=== PATIENT | female | born 1985 ===

== ENCOUNTER 2023-09-30 10:01 | Emergency (ER) | payer OTHER, SELFPAY ==
--- NOTE | ~2023-09-30 | XR_ITS ---
EXAMINATION: XR CHEST CLINICAL INFORMATION: Cough. COMPARISON: None available. TECHNIQUE: Frontal view of the chest was obtained. FINDINGS: Normal appearance of the cardiomediastinal structures. No effusions or pneumothoraces. Normal pattern of pulmonary vasculature. No focal pulmonary consolidation. No skeletal abnormalities identified. XR/XR chest 1V IMPRESSION: Normal chest. Lungs clear.
[2023-09-30 10:03] VITALS: BP 132/69; PULSE 100; RESP 18; TEMP 36.1; O2SAT 99; BMI 38.1
[2023-09-30 11:53] LABS: Influenza A PCR POSITIVE (Negative); Influenza B PCR NEGATIVE (Negative); Resp Syncy Virus RNA Qual PCR NEGATIVE (Negative); SARS COV2 PCR INHOUSE NEGATIVE (Negative)
--- NOTE | 2023-09-30 12:31 | ECG_ITS ---
Test Reason : CP Blood Pressure : / mmHG Vent. Rate : 075 BPM Atrial Rate : 075 BPM P-R Int : 134 ms QRS Dur : 088 ms QT Int : 408 ms P-R-T Axes : 030 044 018 degrees QTc Int : 455 ms Normal sinus rhythm with sinus arrhythmia Nonspecific ST and T wave abnormality Borderline ECG No previous ECGs available Referred By: Renita Schneider Electronically Signed By:TRUNG MARIE
--- NOTE | 2023-09-30 12:31 | ED.URI ---
HPI - URI/Sore Throat General Chief Complaint: Upper Respiratory Symptoms Stated Complaint: diff breathing Time Seen by Provider: 09/30/23 11:13 Source: patient and family Mode of arrival: ambulatory Limitations: no limitations History of Present Illness HPI Narrative: 38 year old female with pmhx significant for asthma presents to the ED today for evaluation of shortness of breath, cough, and nasal congestion x yesterday. Cough is nonproductive of sputum. Endorses history of asthma. Has an albuterol inhaler at home that is 7 years old. Has been using it without relief. Denies fever, chills, abd pain, n/v, flank pain, LE pain/ swelling. Denies recent travel or long car rides. Denies known sick contacts. Related Data Previous Rx's Medication Instructions Recorded albuterol sulfate 90 mcg/actuation 2 inh inhalation Q20M #6.7 grams 09/30/23 aerosol inhaler prednisone 20 mg tablet 20 mg PO DAILY 5 days #5 tabs 09/30/23 Allergies Allergy/AdvReac Type Severity Reaction Status Date / Time Latex, Natural Rubber Allergy Intermediate Hives Verified 09/30/23 10:03 Review of Systems Review of Systems: Constitutional: No fever, chills, fatigue, night sweats, weight changes ENT/Mouth: No ear pain, hearing loss, nasal congestion, sinus pain, rhinorrhea, +sore throat, No odynophagia, No dysphagia Eyes: No eye pain, swelling, redness, vision changes, discharge Cardio: No chest pain, palpitations, ANN, orthopnea, peripheral edema Pulm: +SOB, +cough, No sputum, wheezing, dyspnea, hemoptysis GI: No nausea, vomiting, hematemesis, abdominal pain, diarrhea, constipation, hematochezia, melena : No irregular bleeding, dysuria, frequency, urgency, hesitancy, hematuria, flank pain MSK: No back pain, neck pain, joint pain, myalgias Skin: No lesions, rashes Neuro: No weakness, numbness, paresthesias, LOC, dizziness, headache All other systems reviewed and are negative. [facility] Past Medical History Attestation statement: The following information was validated with the patient. Source: old records reviewed and nursing notes reviewed Social History Social History Advance Directives: No Physical Exam Vital Signs: Vital Signs: Last Vital Signs Temp 97.0 F 09/30/23 10:03 Pulse 100 09/30/23 10:03 Resp 18 09/30/23 10:03 BP 132/69 09/30/23 10:03 Pulse Ox 99 09/30/23 10:03 O2 Del Method Room Air 09/30/23 10:03 BMI result Body Mass Index 38.1 Vital signs stable, not hypoxic Const: General: cooperative, healthy appearing, comfortable, no acute distress, alert and awake Orientation/consciousness: patient oriented x3 Limitations: no limitations HEENT: Other: + posterior oropharynx without erythema or edema, no tonsillar exudates, uvula midline, talking in complete sentences and controlling secretions. Ears: hearing grossly normal bilaterally, external ears normal, TM's normal bilaterally, EAC's normal, mastoids normal and no periauricular adenopathy General nose exam: Normal external nose present and No nasal discharge present Face and sinus: Yes normal facial exam and Yes sinuses nontender Eyes: General: appearance normal, both eyes and all related structures Pupils: Equal, round and reactive pupils present Neck: Neck: Yes normal visual inspection and Yes no lymphadenopathy Resp: Effort & Inspection: normal respiratory effort, able to speak in complete sentences, Actively coughing, no respiratory distress, no tripod positioning and no use of accessory muscles Auscultation: clear to auscultation bilaterally and no wheezes Cardio: Jugular venous distension: no JVD Rate: regular rate Rhythm: regular rhythm GI: Inspection: Yes normal to inspection Palpation (GI): Soft to palpation and nontender Skin: General skin exam: no rashes or lesions noted Neuro: General: patient oriented x3, gait normal and moves all extremities Cranial nerves: Yes Equal, round and reactive pupils present Extrem: General: Yes normal to inspection Course Course Course Narrative: 1249-- patient is positive for influenza A. She tested negative for RSV and COVID. Chest x-ray is unremarkable. EKG unremarkable. Informed patient of her serology and imaging results. Her lungs are CTA bilaterally, no signs of acute respiratory distress, vital signs are stable. I offered patient a dose of Solu-Medrol along with RT breathing treatment in the ED however she declines both of these. States that she would like to go home. Patient has remained stable throughout ED visit today. Discussed worrisome signs and symptoms of when to return to the ED. All questions answered at this time. Patient is agreeable with disposition and stable for discharge. Medications Administered Discontinued Medications Generic Name Dose Route Start Last Admin Trade Name Pam PRN Reason Stop Dose Admin Methylprednisolone Sodium Succinate 60 mg 09/30/23 12:32 09/30/23 12:55 Methylprednisolone Sod Succ 125 Mg/2 Ml Vial IM 09/30/23 12:33 60 mg ONCE ONE Administration Medical Decision Making Medical Decision Making [facility] Narrative: 38 year old female with pmhx significant for asthma presents to the ED today for evaluation of shortness of breath, cough, and nasal congestion x yesterday. Vital signs stable. She is afebrile, not hypoxic. She is nontoxic appearing and in no acute distress. Lungs CTA bilaterally. No wheezing. Actively coughing on exam. RRR. Posterior oropharynx WNL. Bilateral EACs and TMs WNL. Perc score 0. Low suspicion for PE. Clinical concern for viral syndrome, pneumonia, strep throat. Unlikely pneumothorax, ACS, arrhythmia, pleural effusion, mono, [employer], retropharyngeal abscess, epiglottis, acute respiratory distress. Plan for serology, chest x-ray, EKG and re-evaluation. Differential Diagnosis Differential Diagnoses: The differential diagnosis associated with the presentation includes as above. Admission/Observation Not indicated Lab Data [facility] Lab Attestation statement: I reviewed the patient's lab results. as above Labs: Lab Results 09/30/23 Range/Units 10:13 Influenza Type A (PCR) POSITIVE A (Negative) Influenza Type B (PCR) NEGATIVE (Negative) RSV RNA Qual (PCR) NEGATIVE (Negative) SARS-CoV-2 RNA (RT-PCR) NEGATIVE (Negative) Independent Interpretation I performed an independent interpretation of an: EKG and Plain X-Ray Interpretation: EKG showing normal sinus rhythm with sinus arrhythmia, rate of 75 beats per minute, QT 408, QTC 455, no acute ischemic changes or ST elevations. Chest x-ray without infiltrate or consolidation, agree with radiologist's interpretation. Radiology Impression Radiologist Impression: XR chest 1V IMPRESSION: Normal chest. Lungs clear. External Record Review External record reviewed: Inpatient record Prescription Management I considered prescription management with: Other (steroid) Chronic Conditions Patient?s care impacted by: Other (asthma) Social Determinants Patient?s care significantly limited by Social Determinants of Health including: Other Social Determinant of Health Critical Care Time Critical Care Time Critical Care Time: No Discharge Plan Discharge Clinical Impression: Influenza A Patient Disposition: Home, Self-Care Instructions: Influenza (ED), Flu Shot (Vaccine) for Adults (ED) Additional Instructions: You tested positive for influenza a today. Your chest x-ray was normal. Your EKG was normal. He declined breathing treatment today. You were given a dose of steroids in ED. Prednisone if the steroid that has been sent to your pharmacy. You can take this over the next 5 days. A new albuterol inhaler has been sent to your pharmacy. Do not use more than 2 puffs every 20 minutes as this can raise your heart rate and worsen symptoms. If you find that your wheezing or shortness of breath is not resolving with inhaler, return to the emergency department. You may take Tylenol and ibuprofen at home as needed for body aches or fevers. Practice good hand hygiene. Follow-up with your primary care provider this week. If you do not have one, a referral has been provided to you. If symptoms persist or worsen please return to the emergency department. In the case of an emergency call 911. Prescriptions: New prednisone 20 mg tablet 20 mg PO DAILY 5 Days Qty: 5 0RF albuterol sulfate 90 mcg/actuation HFA aerosol inhaler 2 inh inhalation Q20M Qty: 6.7 0RF Rx Instructions: for up to 3 doses Referrals: [facility] [Provider Group] Physician,None [Primary Care Provider] - Interventions: ED Discharge Assessment Last Done: 09/30/23 12:55 Discharge Date/Time: 09/30/23 12:55
[2023-09-30] MEDS: methylPREDNISolone Sod Succ 125 MG/2 ML VIAL 60 MG IM (12:55)
== END 2023-09-30 12:55 | disposition home or self-care (01) ==
PROVIDERS: Emergency Provider Student in an Organized Health Care Education/Training Program
DX: J10.1 Influenza due to other identified influenza virus with other respiratory manifestations (principal); J45.909 Unspecified asthma, uncomplicated; Z20.822 Contact with and (suspected) exposure to COVID-19; Z20.828 Contact with and (suspected) exposure to other viral communicable diseases
CPT/HCPCS: 0241U; 71045; 93005; 96372; 99283; 99284; J2930

== ENCOUNTER → 2023-09-30 12:31 | Outpatient (BNV) | payer OTHER, SELFPAY | PROVIDERS: Emergency Provider Student in an Organized Health Care Education/Training Program; Visit Provider Internal Medicine | DX: R07.9 Chest pain, unspecified (principal) | CPT/HCPCS: 93010 ==

== ENCOUNTER 2023-12-21 10:01 | Emergency (ER) | payer OTHER, SELFPAY ==
--- NOTE | ~2023-12-21 | XR_ITS ---
EXAMINATION: XR CHEST CLINICAL INFORMATION: Reason for Exam Syncope COMPARISON: Chest radiograph 09/30/2023 TECHNIQUE: One view of the chest FINDINGS: Lines and tubes: EKG leads overlie the patient. 1 cm nodular opacity in the right lung apex, unclear if this could reflect a new pulmonary nodule versus superimposition of tissues, recommend correlation with nonemergent CT chest. No pleural effusion. No pneumothorax. Normal cardiomediastinal silhouette. XR/XR chest 1V IMPRESSION: 1. 1 cm nodular opacity in the right lung apex, unclear if this could reflect a new pulmonary nodule versus superimposition of tissues, recommend correlation with nonemergent CT chest.
--- NOTE | ~2023-12-21 | MR_ITS ---
EXAMINATION: MR BRAIN WITHOUT CONTRAST CLINICAL INFORMATION: Dizziness, history of CVA COMPARISON: CT head 12/21/2023 TECHNIQUE: MRI of the brain was obtained using routine sequences without contrast. FINDINGS: Motion degraded examination somewhat compromising diagnostic assessment. No acute infarct. No acute intracranial hemorrhage or extra-axial fluid collection. The ventricles and sulci are normal in size and configuration without significant volume loss or hydrocephalus. No parenchymal signal abnormality. No mass lesion, mass effect, or herniation pattern. Normal intracranial arterial and dural venous sinus flow voids. Normal appearance of the midline structures. The orbits are grossly unremarkable. The paranasal sinuses and mastoids are well aerated. Adenoidal tonsillar hyperplasia with nasopharyngeal retention cyst in the left paramidline nasopharynx. Normal marrow signal. Redemonstrated 6 mm nodular soft tissue in the right suboccipital scalp with corresponding restricted diffusion, presumably an asymmetric nonpathologic size criteria suboccipital lymph node. MR/MR head/brain wo con IMPRESSION: No acute intracranial abnormality.
--- NOTE | ~2023-12-21 | CT_ITS ---
EXAMINATION: CT HEAD WITHOUT CONTRAST CLINICAL INFORMATION: Reason for Exam Syncope COMPARISON: None. TECHNIQUE: Contiguous axial imaging was performed from the skull base to vertex without intravenous contrast. Sagittal and coronal reformatted images were obtained. This CT examination was performed using dose optimization techniques as appropriate, variously including the following: * Automated exposure control * Adjustment of mA and/or kV according to patient size (this includes techniques or standardized protocols for targeted exams where dose is matched to indication/reason for exam; i.e. extremities or head) Use of iterative reconstruction technique DLP: 641.59 mGy-cm mGy-cm FINDINGS: No acute osseous abnormality. A 0.8 cm fluid attenuation lesion in the right suboccipital soft tissues of the scalp possibly a sebaceous cyst. The mastoid air cells and visualized portions of the paranasal sinuses are well aerated. Mild degenerative changes of the temporal mandibular joints. There is no evidence of acute intracranial hemorrhage or territorial infarction. No abnormal mass effect or midline shift is seen. Baker to white matter differentiation is well preserved. No extra-axial fluid collections are identified. No hydrocephalus. CT/CT head/brain wo IV con IMPRESSION: 1. No acute intracranial pathology. 2. A 0.8 cm fluid attenuation lesion in the right suboccipital soft tissues of the scalp possibly a sebaceous cyst. 3. Mild degenerative changes of the temporomandibular joints.
[2023-12-21 10:03] VITALS: BP 170/114; PULSE 88; RESP 18; TEMP 36.7; O2SAT 99; BMI 40.7
[2023-12-21 10:15] VITALS: BP 158/90; PULSE 77; RESP 18; O2SAT 99
--- NOTE | 2023-12-21 10:25 | ECG_ITS ---
Test Reason : SYNCOPE Blood Pressure : / mmHG Vent. Rate : 064 BPM Atrial Rate : 064 BPM P-R Int : 154 ms QRS Dur : 084 ms QT Int : 394 ms P-R-T Axes : 046 044 029 degrees QTc Int : 406 ms Normal sinus rhythm Normal ECG When compared with ECG of 30-SEP-2023 12:42, Nonspecific T wave abnormality no longer evident in Anterior leads Referred By: Gretchen Guillen Electronically Signed By:ROHAN FOSTER MD
[2023-12-21 10:39] VITALS: BP 134/81; PULSE 71
[2023-12-21 10:40] VITALS: BP 160/103; BP 163/103; PULSE 71; PULSE 72
--- NOTE | 2023-12-21 10:55 | ED.NEUROSD ---
HPI - Neuro Symptoms/Deficit General Chief Complaint: Neuro Symptoms/Deficit Stated Complaint: fainting and head pressure Time Seen by Provider: 12/21/23 10:25 Source: patient Mode of arrival: ambulatory Limitations: no limitations History of Present Illness HPI Narrative: A 38-year-old female presented today with 5 days of right side head pressure, feeling dizzy unbalanced, with near syncopal episode never full syncope or LOC, patient also is complaining of being unfocused with blurry vision, otherwise no weakness or numbness or slurred speech. Has been eating and drinking normally, no ear pain. No CP, no SOB, no abdominal pain. S/p hysterectomy. Admitted to smoking marijuana this morning that improved her symptoms. Patient had a stroke 6 years ago happened in [place] require her to stay in the hospital for 1 month patient was told the stroke is due to stress patient was not taking hormonal therapy or contraception. Related Data Previous Rx's Medication Instructions Recorded albuterol sulfate 90 mcg/actuation 2 inh inhalation Q20M #6.7 grams 09/30/23 aerosol inhaler prednisone 20 mg tablet 20 mg PO DAILY 5 days #5 tabs 09/30/23 meclizine 25 mg tablet 25 mg PO TID PRN dizziness #10 tabs 12/21/23 Allergies Allergy/AdvReac Type Severity Reaction Status Date / Time Latex, Natural Rubber Allergy Intermediate Hives Verified 12/21/23 10:09 Review of Systems Review of Systems: All other systems are reviewed and are negative Constitutional: Reports as per HPI and Reports no additional constitutional complaints Eyes: Reports as per HPI and Reports no additional eye complaints Reports system reviewed and no additional complaints, except as documented Cardiovascular: Reports as per HPI and Reports no additional cardiovascular complaints Respiratory: Reports as per HPI and Reports no additional respiratory complaints Gastrointestinal: Reports as per HPI and Reports no additional gastrointestinal complaints Genitourinary: Reports no additional female genitourinary complaints Musculoskeletal: Reports no additional musculoskeletal complaints Skin/Breast: Reports system reviewed and no additional complaints, except as docu Psychiatric: Reports no additional psychiatric complaints Endocrine: Reports no additional endocrine complaints Hematologic/Lymphatic: Reports no additional hematologic/lymphatic complaints Allergic/Immunologic: Reports no additional allergic/immunologic complaints Reports system reviewed and no additional complaints, except as documented and Reports Abnormal speech present [facility] Social History Social History Advance Directives: No Advance Directives Information Provided: No Physical Exam Vital Signs: Vital Signs: Last Vital Signs Temp 98.1 F 12/21/23 10:03 Pulse 79 12/21/23 13:59 Resp 16 12/21/23 13:59 BP 139/98 H 12/21/23 13:59 Pulse Ox 100 12/21/23 13:59 O2 Del Method Room Air 12/21/23 13:59 BMI result Body Mass Index 40.7 Vital signs have been reviewed and appear to be correct. Blood pressure elevated. Heart rate normal. Respiratory rate normal. Temperature normal. Oxygen saturation normal. Appearance: Alert. Oriented X3. No acute distress. Head: Normal external exam. Normocephalic. Atraumatic. No Beal signs noted. No raccoon eyes noted Eyes: PERRLA. EOMI. Conjunctiva and sclera normal. Eyelids normal. ENT: TM's Normal. Pharynx normal. Uvula midline. Moist mucous membranes. No trismus noted. No drooling noted. No muffled voice noted. No maxillary or frontal sinuses tenderness to percussion. Neck: Normal inspection. Neck supple. FROM. No adenopathy. Thyroid Normal. No meningeal signs. No neck mass noted. CVS: Normal heart rate and rhythm. Heart sound normal. No murmurs noted. Pulses normal throughout. Respiratory: No respiratory distress. Painless inspiration. Breath sounds normal. No wheezes/rales/rhonchi noted. Chest nontender. No accessory muscle usage noted or decreased air movement noted. Abdomen: Soft and nontender. Bowel sounds normal in all 4 quadrants. No distention noted. No organomegaly noted. No visible injury noted. Back: No CVA tenderness. Full range of motion noted. Skin: Skin warm and dry. Normal skin color. Normal skin turgor. No rashes/lesions/lacerations noted. Extremities: No lower extremity edema. Extremities exhibit normal range of motion. Extremities nontender. Neuro: Oriented X 3. Cranial nerve exam: II-XII are grossly intact No motor deficit. No sensory deficit. Reflexes normal. Course Reevaluation(s) Reevaluation #1: MRI/head CT is unremarkable for acute intracranial pathology, blood pressure found to be on the high side patient needs to follow-up with PCP, ENT exam is unremarkable for infection, patient saying no vertigo but feeling unsteady. All workup today is unremarkable, patient was instructed to take meclizine if needed for her symptoms and follow-up with PCP. Time: 14:08 Medications Administered Generic Name Dose Route Start Last Admin Trade Name Freq PRN Reason Stop Dose Admin Sodium Chloride 1,000 mls @ 999 mls/hr 12/21/23 13:23 12/21/23 13:54 Ns IV 12/21/23 14:23 Not Given .Q1H1M ONE Discontinued Medications Generic Name Dose Route Start Last Admin Trade Name Freq PRN Reason Stop Dose Admin Sodium Chloride 1,000 mls @ 999 mls/hr 12/21/23 10:25 12/21/23 11:16 Ns IV 12/21/23 11:25 999 mls/hr .Q1H1M ONE Administration Meclizine HCl 25 mg 12/21/23 13:23 12/21/23 13:41 Meclizine Hcl 25 Mg Tablet PO 12/21/23 13:24 25 mg ONCE ONE Administration Ondansetron HCl 4 mg 12/21/23 13:23 12/21/23 13:41 Ondansetron Hcl 4 Mg/2 Ml Vial IVPUSH 12/21/23 13:24 4 mg ONCE ONE Administration Medical Decision Making Differential Diagnosis Differential Diagnoses: The differential diagnosis associated with the presentation includes (Hemorrhagic CVA, ischemic CVA, dehydration, electrolyte derangement, severe anemia, sinusitis, otitis media.) Admission/Observation Consideration of admission/observation: Escalation of care including admission/observation considered Lab Data MDM Lab Attestation statement: I reviewed the patient's lab results. 12/21/23 11:15 12/21/23 11:15 Labs: Lab Results 12/21/23 12/21/23 Range/Units 11:15 11:18 WBC 7.5 (4.8-10.8) X10*3/uL RBC 4.74 (4.20-5.50) X10*6/uL Hgb 14.3 (12.0-16.0) g/dl Hct 42.9 (37.0-47.0) % MCV 90.5 (80.0-98.0) fL MCH 30.2 (27.0-33.0) pg MCHC 33.3 (31.0-35.0) g/dl RDW 12.7 (11.0-16.0) % Plt Count 228 (160-400) X10*3/uL MPV 10.4 (9.4-12.3) fL Immature Gran % (Auto) 0.4 (0.0-0.4) % Neut % (Auto) 62.3 (45-73) % Lymph % (Auto) 29.7 (20-40) % [place] % (Auto) 5.1 (2-11) % Eos % (Auto) 2.0 (0-4) % Baso % (Auto) 0.5 (0-2) % Lymph # (Auto) 2.2 (1.2-4.9) X10*3/uL [place] # (Auto) 0.4 (0.1-1.2) X10*3/uL Eos # (Auto) 0.2 (0.0-0.4) X10*3/uL Baso # (Auto) 0.0 (0.0-0.2) X10*3/uL Abs Immat Gran (auto) 0.03 (0.00-0.03) X10*3/uL Absolute Neuts (auto) 4.7 (2.0-8.3) x10*3/uL Absolute Nucleated RBC 0.000 (0.0-0.012) X10*3/uL Nucleated RBC % (auto) 0.0 (0.0-0.2) /100WBC Sodium 140 (135-145) mmol/L Potassium 4.7 (3.3-5.1) mmol/L Chloride 108 (96-108) mmol/L Carbon Dioxide 24 (22-29) mmol/L Anion Gap 13 (12-20) BUN 12 (9-16) mg/dL Creatinine 0.78 (0.5-1.4) mg/dL Estim Creat Clear Calc 105.6 Estimated GFR > 60 Random Glucose 102 (60-115) mg/dL Calcium 9.4 (8.4-10.2) mg/dL Total Bilirubin 0.2 (0.0-1.0) mg/dL Direct Bilirubin < 0.2 (0.0-0.5) mg/dL AST 19 (5-31) U/L ALT 20 (0-31) U/L Alkaline Phosphatase 84 (39-117) U/L Troponin I High Sens < 2.7 (<3.5-17.0) ng/L B-Natriuretic Peptide < 10 (<100) pg/mL Total Protein 7.8 (6.5-8.0) g/dL Albumin 4.2 (3.5-5.0) g/dL Lipase 15 (8-78) U/L Influenza Type A (PCR) NEGATIVE (Negative) Influenza Type B (PCR) NEGATIVE (Negative) RSV RNA Qual (PCR) NEGATIVE (Negative) SARS-CoV-2 RNA (RT-PCR) NEGATIVE (Negative) Independent Interpretation I performed an independent interpretation of an: CT Scan (Head:. No acute intracranial pathology. 2. A 0.8 cm fluid attenuation lesion in the right suboccipital soft tissues of the scalp possibly a sebaceous cyst. 3. Mild degenerative changes of the temporomandibular joints. ) Interpretation: MRI of the brain: No acute intracranial abnormality. Radiology Impression Discussion of test interpretation with radiology: I have reviewed the radiologist's reading. NIH Stroke Scale Time: 11:02 Level of Consciousness: Alert Level of Consciousness Questions: Answers both questions correctly Level of Consciousness Commands: Performs both tasks correctly Best Gaze: Normal Visual: No visual loss Facial Palsy: Normal Motor Arm (Right): No drift Motor Arm (Left): No drift Motor Leg (Right): No drift Motor Leg (Left): No drift Limb Ataxia: Absent Sensory: Normal Best Language: No aphasia Dysarthia: Normal Extinction and Inattention: No abnormality Score: 0 Discharge Plan Discharge Clinical Impression: Dizziness Patient Disposition: Home, Self-Care Instructions: Dizziness (ED) Prescriptions: New meclizine 25 mg tablet 25 mg PO TID PRN (Reason: dizziness) Qty: 10 0RF No Action prednisone 20 mg tablet 20 mg PO DAILY 5 Days Qty: 5 0RF albuterol sulfate 90 mcg/actuation HFA aerosol inhaler 2 inh inhalation Q20M Qty: 6.7 0RF Rx Instructions: for up to 3 doses
[2023-12-21] MEDS: 0.9 % Sodium Chloride 1,000 ML 999 ML IV (11:16)
[2023-12-21 11:26] LABS: MANUAL DIFF FLAG NO
[2023-12-21 11:28] LABS: Basophils Percent Auto 0.5 % (0-2); Eosinophils Absolute Auto 0.2 X10*3/uL (0.0-0.4); Hematocrit 42.9 % (37.0-47.0); Hemoglobin 14.3 g/dl (12.0-16.0); Imm Gran Abs Auto 0.03 X10*3/uL (0.00-0.03); Imm Gran Pct Auto 0.4 % (0.0-0.4); Lymphocytes Absolute Auto 2.2 X10*3/uL (1.2-4.9); Lymphocytes Percent Auto 29.7 % (20-40); Mean Corpuscular HGB Conc 33.3 g/dl (31.0-35.0); Mean Corpuscular Hemoglobin 30.2 pg (27.0-33.0); Mean Corpuscular Volume 90.5 fL (80.0-98.0); Mean Platelet Volume 10.4 fL (9.4-12.3); Monocytes Absolute Auto 0.4 X10*3/uL (0.1-1.2); Monocytes Percent Auto 5.1 % (2-11); Neutrophils Absolute Auto 4.7 x10*3/uL (2.0-8.3); Neutrophils Percent Auto 62.3 % (45-73); Platelet Count 228 X10*3/uL (160-400); Red Blood Count 4.74 X10*6/uL (4.20-5.50); Red Cell Distribution Width 12.7 % (11.0-16.0); White Blood Count 7.5 X10*3/uL (4.8-10.8)
[2023-12-21 11:47] LABS: Alanine Aminotransferase 20 U/L (0-31); Albumin Level 4.2 g/dL (3.5-5.0); Alkaline Phosphatase 84 U/L (39-117); Anion Gap 13 (12-20); Aspartate Amino Transferase 19 U/L (5-31); Bilirubin Direct < 0.2 mg/dL (0.0-0.5); Bilirubin Total 0.2 mg/dL (0.0-1.0); Blood Urea Nitrogen 12 mg/dL (9-16); Calcium 9.4 mg/dL (8.4-10.2); Carbon Dioxide 24 mmol/L (22-29); Chloride 108 mmol/L (96-108); Creatinine Clr Calc Pharmacy 105.6; Estimated Glomerular Filt Rate > 60; Glucose Random 102 mg/dL (60-115); Lipase 15 U/L (8-78); Potassium 4.7 mmol/L (3.3-5.1); Sodium 140 mmol/L (135-145); Total Protein 7.8 g/dL (6.5-8.0)
[2023-12-21 11:53] LABS: B Type Natriuretic Peptide < 10 pg/mL (<100)
[2023-12-21 11:56] LABS: Troponin-I High Sensitivity < 2.7 ng/L (<3.5-17.0)
[2023-12-21 12:08] LABS: Influenza A PCR NEGATIVE (Negative); Influenza B PCR NEGATIVE (Negative); Resp Syncy Virus RNA Qual PCR NEGATIVE (Negative); SARS COV2 PCR INHOUSE NEGATIVE (Negative)
[2023-12-21] MEDS: ondansetron HCL 4 MG/2 ML VIAL IVPUSH (13:41)
[2023-12-21] MEDS: Meclizine HCl 25 MG TABLET PO (13:41)
[2023-12-21 13:59] VITALS: BP 139/98; PULSE 79; RESP 16; O2SAT 100
[2023-12-21 14:27] VITALS: BP 139/98; PULSE 79; RESP 16; TEMP 36.6; O2SAT 100
== END 2023-12-21 14:28 | disposition home or self-care (01) ==
PROVIDERS: Emergency Provider Emergency Medicine
DX: R55 Syncope and collapse (principal); H53.8 Other visual disturbances; F12.90 Cannabis use, unspecified, uncomplicated; Z86.73 Personal history of transient ischemic attack (TIA), and cerebral infarction without residual deficits; Z11.52 Encounter for screening for COVID-19; Z20.828 Contact with and (suspected) exposure to other viral communicable diseases
CPT/HCPCS: 0241U; 36415; 70450; 70551; 71045; 80048; 80076; 83690; 83880; 84484; 85025; 93005; 96374; 99284; J2405

== ENCOUNTER → 2023-12-21 10:25 | Outpatient (BNV) | payer SELFPAY | PROVIDERS: Emergency Provider Emergency Medicine; Visit Provider Internal Medicine Cardiovascular Disease | DX: R55 Syncope and collapse (principal) | CPT/HCPCS: 93010 ==

== ENCOUNTER 2024-03-21 11:35 | Emergency (ER) | payer OTHER, SELFPAY ==
--- NOTE | ~2024-03-21 | XR_ITS ---
EXAMINATION: XR FOOT, LEFT CLINICAL INFORMATION: Pain, injury. COMPARISON: None available. TECHNIQUE: AP, lateral, and oblique views of the left foot. FINDINGS: Limited evaluation of the frontal view due to underexposure with suboptimal visualization of osseous details. The lateral and oblique views demonstrate improved quality compared to the frontal view. No discrete fracture or subluxation. No significant degenerative changes. No unexpected radiopaque foreign bodies. Mild diffuse soft tissue thickening, possibly related with body habitus. XR/XR foot LT min 3V IMPRESSION: Limited visualization of the frontal view as above without discrete acute osseous fractures or dislocation. Repeat frontal image could be obtained as clinically warranted.
[2024-03-21 11:39] VITALS: BP 150/100; PULSE 92; RESP 18; TEMP 36.4; O2SAT 97; BMI 35.7
--- NOTE | 2024-03-21 11:39 | ED.LOWEXIN ---
HPI - Extremity Injury (Lower) General Chief Complaint: Extremity Injury, Lower Stated Complaint: L foot injury Time Seen by Provider: 03/21/24 12:01 Related Data Previous Rx's ?Medication ?Instructions ?Recorded albuterol sulfate 90 mcg/actuation 2 inh inhalation Q20M #6.7 grams 09/30/23 aerosol inhaler prednisone 20 mg tablet 20 mg PO DAILY 5 days #5 tabs 09/30/23 meclizine 25 mg tablet 25 mg PO TID PRN dizziness #10 tabs 12/21/23 Allergies Allergy/AdvReac Type Severity Reaction Status Date / Time Latex, Natural Rubber Allergy Intermediate Hives Verified 03/21/24 11:43 [facility] Social History Social History Advance Directives: No Advance Directives Information Provided: No Physical Exam Vital Signs: Vital Signs: Last Vital Signs Temp 97.5 F 03/21/24 13:35 Pulse 72 03/21/24 13:35 Resp 16 03/21/24 13:35 BP 137/93 H 03/21/24 13:35 Pulse Ox 99 03/21/24 13:35 O2 Del Method Room Air 03/21/24 13:35 BMI result Body Mass Index 35.7 Course Course Course Narrative: This is a Rapid Medical Examination (RME) performed by Melissa Romano PA-C in triage. Full HPI, ROS, assessment and treatment plan per primary provider in the Main ED. 38 yo female presents to the ER for evaluation of left foot pain s/p stubbing injury yesterday at 5pm. pain significantly worse overnight. primarily in the 4th and 5th digits w/ bruising and swelling Plan: xray foot 1258--XR foot LT min 3V IMPRESSION: Limited visualization of the frontal view as above without discrete acute osseous fractures or dislocation. Repeat frontal image could be obtained as clinically warranted. ADDENDUMAn additional frontal view with adequate technique was provided by the technologist. No evidence of fracture or subluxation. No significant soft tissue abnormality. > colleen tape applied for symptomatic relief. Results discussed with patient including worrisome signs and symptoms and strict return precautions, and when to return to the emergency department. They verbalized understanding and feel safe for discharge at this time. Medications Administered Discontinued Medications Generic Name Dose Route Start Last Admin Trade Name Freq PRN Reason Stop Dose Admin Ibuprofen 800 mg 03/21/24 12:28 03/21/24 12:56 Ibuprofen 800 Mg Tablet PO 03/21/24 12:29 800 mg ONCE ONE Administration Discharge Plan Discharge Clinical Impression: Contusion of fifth toe Patient Disposition: Home, Self-Care Instructions: Foot Contusion (ED) Additional Instructions: Your x-rays do not show a fracture/break Take Tylenol and Motrin at home for pain/swelling Ice and elevate Use colleen tape as needed If symptoms persist or worsen or pain becomes unbearable return to the ED Prescriptions: No Action prednisone 20 mg tablet 20 mg PO DAILY 5 Days Qty: 5 0RF albuterol sulfate 90 mcg/actuation HFA aerosol inhaler 2 inh inhalation Q20M Qty: 6.7 0RF Rx Instructions: for up to 3 doses meclizine 25 mg tablet 25 mg PO TID PRN (Reason: dizziness) Qty: 10 0RF Referrals: [facility] [place] Orthopedic Surgeons [Provider Group] (as needed) Physician,Unknown J [Primary Care Provider] - 1 week Stand Alone Forms: Work/School Release Interventions: ED Discharge Assessment Last Done: 03/21/24 13:35 Discharge Date/Time: 03/21/24 13:36 Print Language: Bulgarian
--- NOTE | 2024-03-21 12:33 | ED.LOWEXIN ---
HPI - Extremity Injury (Lower) General Chief Complaint: Extremity Injury, Lower Stated Complaint: L foot injury Time Seen by Provider: 03/21/24 12:01 Source: patient, RN notes reviewed and old records reviewed Mode of arrival: ambulatory History of Present Illness ED Provider: Lupe So PA-C HPI Narrative: 38 year old female w/no sig PMHx presenting to the ED c/o left pinky toe pain/discoloration s/p stubbing toe on bed frame last night. Denies injury to other area. Reports increased pain with weight-bearing/ambulation MD complaint: foot injury Related Data Previous Rx's ?Medication ?Instructions ?Recorded albuterol sulfate 90 mcg/actuation 2 inh inhalation Q20M #6.7 grams 09/30/23 aerosol inhaler prednisone 20 mg tablet 20 mg PO DAILY 5 days #5 tabs 09/30/23 meclizine 25 mg tablet 25 mg PO TID PRN dizziness #10 tabs 12/21/23 Allergies Allergy/AdvReac Type Severity Reaction Status Date / Time Latex, Natural Rubber Allergy Intermediate Hives Verified 03/21/24 11:43 Review of Systems Review of Systems: Constitutional: No Fever, No Chills Cardiovascular: No Chest Pain, No SOB Respiratory: No Cough Gastrointestinal: No Nausea, No Vomiting, No Abdominal pain Musculoskeletal: + joint pain, No Myalgias, + Joint Swelling Skin: No Skin Lesions, No rash Neuro: No Weakness, No Numbness, No Paresthesias Yes all other systems are reviewed and are negative Constitutional: Constitutional: Reports as per HPI [facility] Past Medical History Attestation statement: The following information was validated with the patient. Source: old records reviewed Social History Social History Advance Directives: No Advance Directives Information Provided: No Physical Exam Vital Signs: Vital Signs: Last Vital Signs Temp 97.5 F 03/21/24 11:39 Pulse 92 03/21/24 11:39 Resp 18 03/21/24 11:39 BP 150/100 H 03/21/24 11:39 Pulse Ox 97 03/21/24 11:39 O2 Del Method Room Air 03/21/24 11:39 BMI result Body Mass Index 35.7 Const: General: cooperative, healthy appearing and no acute distress Orientation/consciousness: patient oriented x3 Limitations: no limitations HEENT: Head: Yes normal to inspection and Yes atraumatic Ears: hearing grossly normal bilaterally General nose exam: Normal external nose present Face and sinus: Yes normal facial exam Eyes: General: appearance normal, both eyes and all related structures EOM: EOMs intact bilaterally Neck: Neck: Yes normal visual inspection and Yes no meningeal signs Resp: Effort & Inspection: normal respiratory effort and no respiratory distress Cardio: Rate: regular rate Peripheral pulses: dorsalis pedis present Skin: Rashes: no rashes Wounds: no wounds Neuro: General: patient oriented x3, tone normal and no meningeal signs Cranial nerves: Yes CN's II-XII intact bilaterally Gait exam (Neuro): Normal gait present Extrem: Other: left foot w/pinky toe ecchymosis/swelling and ttp. NV intact Ankle nontender Medications Administered Discontinued Medications Generic Name Dose Route Start Last Admin Trade Name Freq PRN Reason Stop Dose Admin Ibuprofen 800 mg 03/21/24 12:28 03/21/24 12:56 Ibuprofen 800 Mg Tablet PO 03/21/24 12:29 800 mg ONCE ONE Administration Medical Decision Making Medical Decision Making MDM Narrative: 38 year old female w/no sig PMHx presenting to the ED c/o left pinky toe pain/discoloration s/p stubbing toe on bed frame last night. On exam hypertensive likely from pain, NAD nontoxic appearing, physical exam as noted above. Concern for fracture vs sprain. No evidence of infection Plan: X-rays Please refer to course for remaining clinical decision making, interpretation of labs/imaging results, and discussions with consultants and/or family members. Differential Diagnosis Differential Diagnoses: The differential diagnosis associated with the presentation includes As above Independent Interpretation I performed an independent interpretation of an: Plain X-Ray (My interpretation: Appear unremarkable) Radiology Impression Discussion of test interpretation with radiology: I have reviewed the radiologist's reading. External Record Review External record reviewed: Inpatient record, Office record, Outpatient record, Prior outpatient labs, Prior outpatient radiology, Primary care record and Outside ED record Tests considered The following testing was considered but not selected: As above Prescription Management I considered prescription management with: Pain Medication Procedures Orthopedic Splinting/Casting Injury #1: Side: left Lower Extremity Injury Location: toe Lower Extremity Immobilizer: colleen tape Discharge Plan Discharge Clinical Impression: Contusion of fifth toe Patient Disposition: Home, Self-Care Instructions: Foot Contusion (ED) Additional Instructions: Your x-rays do not show a fracture/break Take Tylenol and Motrin at home for pain/swelling Ice and elevate Use colleen tape as needed If symptoms persist or worsen or pain becomes unbearable return to the ED Prescriptions: No Action prednisone 20 mg tablet 20 mg PO DAILY 5 Days Qty: 5 0RF albuterol sulfate 90 mcg/actuation HFA aerosol inhaler 2 inh inhalation Q20M Qty: 6.7 0RF Rx Instructions: for up to 3 doses meclizine 25 mg tablet 25 mg PO TID PRN (Reason: dizziness) Qty: 10 0RF Referrals: [facility] [place] Orthopedic Surgeons [Provider Group] (as needed) Physician,Unknown J [Primary Care Provider] - 1 week Print Language: Ecuadorean
[2024-03-21] MEDS: Ibuprofen 800 MG TABLET PO (12:56)
[2024-03-21 13:35] VITALS: BP 137/93; PULSE 72; RESP 16; TEMP 36.4; O2SAT 99
== END 2024-03-21 13:36 | disposition home or self-care (01) ==
PROVIDERS: Emergency Provider Emergency Medicine Emergency Medical Services
DX: S90.122A Contusion of left lesser toe(s) without damage to nail, initial encounter (principal); W22.03XA Walked into furniture, initial encounter; Y93.89 Activity, other specified; Y92.9 Unspecified place or not applicable; Y99.9 Unspecified external cause status
CPT/HCPCS: 73630; 99283

== ENCOUNTER 2024-08-28 14:34 | Emergency (ER) | payer OTHER, SELFPAY ==
--- NOTE | ~2024-08-28 | CT_ITS ---
EXAMINATION: CT ABDOMEN AND PELVIS WITH CONTRAST CLINICAL INFORMATION: Right upper quadrant abdominal pain. COMPARISON: Abdominal ultrasound 08/28/2024. TECHNIQUE: Multidetector volumetric images were obtained from the superior aspect of the liver through the pubic symphysis following administration 85 mL of Omnipaque 350 intravenous contrast. Sagittal and coronal reformatted images were obtained on the technologist's workstation. Oral contrast: No This CT examination was performed using dose optimization techniques as appropriate, variously including the following: *Automated exposure control *Adjustment of mA and/or kV according to patient size (this includes techniques or standardized protocols for targeted exams where dose is matched to indication/reason for exam; i.e. extremities or head) *Use of iterative reconstruction technique DLP: 778 mGy-cm FINDINGS: LUNG BASES: The visualized lung bases are unremarkable. LIVER, GALLBLADDER, AND BILIARY TREE: The liver is normal in size, shape, and attenuation. No focal hepatic lesion or biliary ductal dilatation is present. The gallbladder is unremarkable with no evidence of radiopaque gallstones, gallbladder wall thickening, or obvious pericholecystic inflammatory changes. PANCREAS: Unremarkable. SPLEEN: Unremarkable. ADRENAL GLANDS: Unremarkable. KIDNEYS AND URETERS: The kidneys are normal in size, shape, and attenuation. No hydronephrosis, hydroureter, or calculi seen. No perinephric stranding. BLADDER: Unremarkable. GASTROINTESTINAL TRACT: Normal appearance of the appendix (series 6 image 45). No free intraperitoneal fluid or gas collections identified. No intestinal dilatation or mural thickening. No inflammatory changes of the sigmoid mesentery or small bowel mesentery. Normal appearance of the stomach and duodenum. ABDOMINAL WALL: No significant hernia is appreciated. LYMPH NODES: Normal. VASCULAR: Unremarkable. PELVIC VISCERA: Uterus is not visualized and may be surgically absent. No adnexal lesions noted. OSSEOUS STRUCTURES: Unremarkable. CT/CT abdomen pelvis w IV con IMPRESSION: *No acute abnormalities identified. *No urolithiasis. No hydronephrosis. Normal appearance of the appendix. No free intraperitoneal fluid or gas collections. Grossly normal appearance of the gallbladder. No biliary duct dilatation. Electronically signed by: Trevor Tony MD 08/28/2024 11:44 PM [facility] [place]
--- NOTE | ~2024-08-28 | US_ITS ---
EXAMINATION: US ABDOMEN LIMITED CLINICAL INFORMATION: Right upper quadrant pain. COMPARISON: None available. TECHNIQUE: Real-time imaging of the right upper quadrant abdominal viscera. FINDINGS: PANCREAS: Visualization of the pancreas is obscured by bowel gas. LIVER: The liver is normal in size. The liver contour is normal. Mild increase in echogenicity diffusely. No focal hepatic lesion. There is no intrahepatic biliary duct dilatation seen. GALLBLADDER: Normal. The gallbladder is physiologically distended without evidence of stones, sludge, polyps, wall thickening or pericholecystic fluid. COMMON BILE DUCT: Normal in caliber measuring 0.2 cm in diameter. RIGHT KIDNEY: Normal. No hydronephrosis. No renal calculi or focal parenchymal lesions. The kidney measures 10.8 cm in maximum dimension. FREE FLUID: None. US/US abdomen limited IMPRESSION: Possible mild diffuse fatty infiltration of the liver. Normal gallbladder. Visualization of the pancreas is obscured by bowel gas. Electronically signed by: Jeffrey Bolanos MD 08/28/2024 07:36 PM EST
--- NOTE | ~2024-08-28 | XR_ITS ---
EXAMINATION: XR CHEST CLINICAL INFORMATION: pain COMPARISON: December 21, 2023. TECHNIQUE: 2 views of the chest were obtained. FINDINGS: No significant abnormality is noted involving the heart, lungs, mediastinum, bony thorax or soft tissues. Previously described 1 cm nodular opacity projecting over the right upper lung field is consistent with the and of the right first rib, and is not appreciated on lateral view. XR/XR chest 2V IMPRESSION: Normal chest PA and lateral. Electronically signed by: Mickey Trotter MD 08/28/2024 04:42 PM EST
[2024-08-28 14:59] VITALS: BP 145/96; PULSE 99; RESP 22; TEMP 37; O2SAT 96; BMI 37.5
--- NOTE | 2024-08-28 15:00 | ED_ITS ---
HPI - General Adult General Chief complaint: Abdominal Pain Stated complaint: r side rib pain no inj Time Seen by Provider: 08/28/24 15:26 Source: patient, RN notes reviewed and old records reviewed History of Present Illness ED Provider: Lupe So PA-C [facility] narrative: 39-year-old female with no significant past medical history presenting to the ED complaining of RUQ abdominal pain radiating to right flank with associated nausea, vomiting, diarrhea x 4 days. States was seen at urgent care and diagnosed with sciatica. Reports pain exacerbates symptoms. Denies fever, chills, dysuria /hematuria Related Data Previous Rx's ?Medication ?Instructions ?Recorded albuterol sulfate 90 mcg/actuation 2 inh inhalation Q20M #6.7 grams 09/30/23 aerosol inhaler prednisone 20 mg tablet 20 mg PO DAILY 5 days #5 tabs 09/30/23 meclizine 25 mg tablet 25 mg PO TID PRN dizziness #10 tabs 12/21/23 loperamide 2 mg capsule 2 mg PO Q6H PRN loose stool #20 08/29/24 (Anti-Diarrheal (loperamide)) caps ondansetron 4 mg disintegrating 4 mg PO Q8H PRN nausea and 08/29/24 tablet vomiting #12 tabs Allergies Allergy/AdvReac Type Severity Reaction Status Date / Time Latex, Natural Rubber Allergy Intermediate Hives Verified 08/28/24 15:00 Review of Systems 2 Review of Systems: Yes all other systems are reviewed and are negative Constitutional: Constitutional: Reports as per [facility] Past Medical History Attestation statement: The following information was validated with the patient. Source: old records reviewed Social History Social History Alcohol intake: current Alcohol intake frequency: holidays/special occasions only Smoked in Last 30 Days: No Use of substances other than those prescribed or required for medical reasons: No Advance Directives: No Advance Directives Information Provided: No Do you have a plan to hurt others: No Plan Patient : No Physical Exam ED Vital Signs: Vital Signs - 24 hr 08/28/24 14:59 08/28/24 15:54 08/28/24 18:04 Temperature 98.6 F 98.0 F 98.2 F Pulse Rate 99 93 73 Respiratory Rate 22 H 18 16 Blood Pressure 145/96 H 124/81 127/83 Pulse Oximetry 96 97 97 Oxygen Delivery Method Room Air Room Air Room Air 08/28/24 20:12 08/28/24 22:10 Temperature 98.0 F 98.5 F Pulse Rate 85 71 Respiratory Rate 16 16 Blood Pressure 134/76 121/62 Pulse Oximetry 100 98 Oxygen Delivery Method Room Air Room Air BMI result Body Mass Index 37.5 Const Other: tearful General: cooperative, healthy appearing and anxious Orientation/consciousness: patient oriented x3 Limitations: no limitations HENMT Head: Yes normal to inspection and Yes atraumatic Ears: hearing grossly normal bilaterally General nose exam: Normal external nose present Face and sinus: Yes normal facial exam Eyes General: appearance normal, both eyes and all related structures EOM: EOMs intact bilaterally Neck Neck: Yes normal visual inspection and Yes no meningeal signs Resp Effort & Inspection: normal respiratory effort and no respiratory distress Cardio Rate: regular rate GI Inspection: Yes normal to inspection Palpation (GI): Soft to palpation, Tenderness to palpation present (GI) in the RUQ; with no rebound tenderness, no guarding and not rigid General: Yes no CVA tenderness Back/Spine/Pelvis Back: no CVA tenderness Skin Rashes: no rashes Wounds: no wounds Neuro General: patient oriented x3, tone normal and no meningeal signs Cranial nerves: Yes CN's II-XII intact bilaterally Gait exam (Neuro): Normal gait present Extrem General: Yes normal to inspection Course Course Course Narrative: RME, this is a rapid medical exam performed by Jaguar Moraes please refer to primary provider for complete H&P- 39-year-old female presents for evaluation of right-sided abdominal pain that started a few days ago. She was seen at urgent care and diagnosed with sciatica, her pain appears to be more in the right upper abdomen. Plan for ultrasound and upper quadrant, labs, urinalysis. -194-- leukocytosis of 16.7. Labs otherwise reassuring. HCG negative - UA negative XR chest 2V IMPRESSION: Normal chest PA and lateral. US abdomen limited IMPRESSION: Possible mild diffuse fatty infiltration of the liver. Normal gallbladder. Visualization of the pancreas is obscured by bowel gas. >1946-- on re-evaluation patient reports continued pain and nausea. Will obtain CT for further eval -2099-- ED care transferred to [facility] pending CT and dispo per results Reevaluation(s) Reevaluation #1: 9:00 p.m. receive sign-out with the patient in stable condition pending CT. 11:[address] returns, no acute process. Reassessment of the patient at this time, abdomen is soft with mild diffuse tenderness. There is no peritoneal signs. Patient reports feeling significantly better then earlier. Patient tolerated IV fluids. She feels comfortable with discharge plan home. She has requested antiemetics and antidiarrheals. I have reviewed all discharge instructions. No further questions at this time. Medications Administered Discontinued Medications Generic Name Dose Route Start Last Admin Trade Name Freq PRN Reason Stop Dose Admin Sodium Chloride 1,000 mls @ 999 mls/hr 08/28/24 15:45 08/28/24 17:19 Ns IV 08/28/24 16:45 Infused .Q1H1M BRIAN Infusion Sodium Chloride 1,000 mls @ 999 mls/hr 08/28/24 20:00 08/28/24 23:08 Ns IV 08/28/24 21:00 Infused .Q1H1M BRIAN Infusion Iohexol 100 ml 08/28/24 20:09 08/28/24 20:10 Iohexol 350 Mg/Ml 100 Ml Infus..Btl IV 08/28/24 20:10 85 ml ONCE ONE Administration Ketorolac Tromethamine 15 mg 08/28/24 17:19 08/28/24 17:24 Ketorolac Tromethamine 15 Mg/Ml Vial IVPUSH 08/28/24 17:20 15 mg ONCE ONE Administration Metoclopramide HCl 10 mg 08/28/24 19:42 08/28/24 20:10 Metoclopramide Hcl 10 Mg/2 Ml Vial IVPUSH 08/28/24 19:43 10 mg ONCE ONE Administration Morphine Sulfate 2 mg 08/28/24 15:31 08/28/24 15:58 Morphine Sulfate 2 Mg/Ml Cartridge IVPUSH 08/28/24 15:32 2 mg ONCE ONE Administration Protocol Morphine Sulfate 2 mg 08/28/24 17:19 08/28/24 17:25 Morphine Sulfate 2 Mg/Ml Cartridge IVPUSH 08/28/24 17:20 2 mg ONCE ONE Administration Protocol Ondansetron HCl 4 mg 08/28/24 15:31 08/28/24 15:58 Ondansetron Hcl 4 Mg/2 Ml Vial IVPUSH 08/28/24 15:32 4 mg ONCE ONE Administration Medical Decision Making Medical Decision Making [facility] Narrative: 39-year-old female with no significant past medical history presenting to the ED complaining of RUQ abdominal pain radiating to right flank with associated nausea, vomiting, diarrhea x 4 days. on exam tearful, appears uncomfortable, anxious, tachypneic, abdomen soft with RUQ tenderness, no rebound or guarding, no CVAT. Concern for cholecystitis /lithiasis vs pancreatitis vs renal stone. Lower suspicion for appendicitis / diverticulitis, ACS Plan: Labs, UA, ultrasound, IVF, pain control, re-evaluate Please refer to course for remaining clinical decision making, interpretation of labs/imaging results, and discussions with consultants and/or family members. Differential Diagnosis Differential Diagnoses: The differential diagnosis associated with the presentation includes As above Admission/Observation Consideration of admission/observation: Escalation of care including admission/observation considered Lab Data [facility] Lab Attestation statement: I reviewed the patient's lab results. 08/28/24 15:08 08/28/24 15:08 Labs: Lab Results 08/28/24 08/28/24 Range/Units 15:08 17:20 WBC 16.7 H (4.8-10.8) X10*3/uL RBC 4.59 (4.20-5.50) X10*6/uL Hgb 14.0 (12.0-16.0) g/dl Hct 40.6 (37.0-47.0) % MCV 88.5 (80.0-98.0) fL MCH 30.5 (27.0-33.0) pg MCHC 34.5 (31.0-35.0) g/dl RDW 12.6 (11.0-16.0) % Plt Count 241 (160-400) X10*3/uL MPV 10.4 (9.4-12.3) fL Immature Gran % (Auto) 0.4 (0.0-0.4) % Neut % (Auto) 70.5 (45-73) % Lymph % (Auto) 23.8 (20-40) % [place] % (Auto) 4.4 (2-11) % Eos % (Auto) 0.4 (0-4) % Baso % (Auto) 0.5 (0-2) % Lymph # (Auto) 4.0 (1.2-4.9) X10*3/uL [place] # (Auto) 0.7 (0.1-1.2) X10*3/uL Eos # (Auto) 0.1 (0.0-0.4) X10*3/uL Baso # (Auto) 0.1 (0.0-0.2) X10*3/uL Abs Immat Gran (auto) 0.06 H (0.00-0.03) X10*3/uL Absolute Neuts (auto) 11.8 H (2.0-8.3) x10*3/uL Absolute Nucleated RBC 0.000 (0.0-0.012) X10*3/uL Nucleated RBC % (auto) 0.0 (0.0-0.2) /100WBC Sodium 137 (135-145) mmol/L Potassium 3.8 (3.3-5.1) mmol/L Chloride 106 (96-108) mmol/L Carbon Dioxide 21 L (22-29) mmol/L Anion Gap 14 (12-20) BUN 12 (9-16) mg/dL Creatinine 0.74 (0.5-1.4) mg/dL Estim Creat Clear Calc 109.4 Estimated GFR > 60 Random Glucose 101 (60-115) mg/dL Calcium 9.6 (8.4-10.2) mg/dL Magnesium 2.0 (1.6-2.6) mg/dL Total Bilirubin 0.2 (0.0-1.0) mg/dL AST 18 (5-31) U/L ALT 11 (0-31) U/L Alkaline Phosphatase 82 (39-117) U/L Total Protein 8.0 (6.5-8.0) g/dL Albumin 4.6 (3.5-5.0) g/dL Lipase 17 (8-78) U/L Beta HCG, Quant < 2 mIU/mL Urine Color Yellow Urine Appearance Clear Urine pH 5.5 (5.0-9.0) Ur Specific [place] 1.015 (1.005-1.025) Urine Protein Negative (Neg-Trace) mg/dL Urine Glucose (UA) Negative (Negative) mg/dL Urine Ketones 15 (Negative) mg/dL Urine Blood Negative (Negative) Urine Nitrite Negative (Negative) Ur Leukocyte Esterase Negative (Negative) Urine RBC 0-2 (0-2) /HPF Urine WBC 0-5 (0-5) /HPF Ur Squamous Epith Cells 0-2 (0-2) /HPF Urine Bacteria None Seen (None Seen) Hyaline Casts 0-2 (0-2) /LPF Independent Interpretation I performed an independent interpretation of an: Ultrasound Radiology Impression Discussion of test interpretation with radiology: I have reviewed the radiologist's reading. External Record Review External record reviewed: Inpatient record, Office record, Outpatient record, Prior outpatient labs, Prior outpatient radiology, Primary care record and Outside ED record Tests considered The following testing was considered but not selected: As above Prescription Management I considered prescription management with: Pain Medication Social Determinants Patient?s care significantly limited by Social Determinants of Health including: Other Social Determinant of Health Discharge Plan Discharge Clinical Impression: Abdominal pain, RUQ Diarrhea Qualifiers: Diarrhea type: unspecified type Qualified Code(s): R19.7 - Diarrhea, unspecified Patient Disposition: Home, Self-Care Instructions: Acute Diarrhea (ED) Additional Instructions: Zofran as directed for nausea. Loperamide as directed for diarrhea. Drink plenty of fluids. Clear liquids. [place] diet. Bananas, plain white rice, applesauce, plain toast. Follow-up with your primary care provider. Call this week to schedule a follow- up appointment. Return to the emergency department if you have any worsening of symptoms, or any concerns. Get well soon! Prescriptions: New loperamide [Anti-Diarrheal (loperamide)] 2 mg capsule 2 mg PO Q6H PRN (Reason: loose stool) Qty: 20 0RF ondansetron 4 mg tablet,disintegrating 4 mg PO Q8H PRN (Reason: nausea and vomiting) Qty: 12 0RF No Action prednisone 20 mg tablet 20 mg PO DAILY 5 Days Qty: 5 0RF albuterol sulfate 90 mcg/actuation HFA aerosol inhaler 2 inh inhalation Q20M Qty: 6.7 0RF Rx Instructions: for up to 3 doses meclizine 25 mg tablet 25 mg PO TID PRN (Reason: dizziness) Qty: 10 0RF Stand Alone Forms: Work/School Release Print Language: Swedish
[2024-08-28 15:11] LABS: MANUAL DIFF FLAG NO
[2024-08-28 15:13] LABS: Basophils Absolute Auto 0.1 X10*3/uL (0.0-0.2); Basophils Percent Auto 0.5 % (0-2); Eosinophils Absolute Auto 0.1 X10*3/uL (0.0-0.4); Eosinophils Percent Auto 0.4 % (0-4); Hematocrit 40.6 % (37.0-47.0); Imm Gran Abs Auto 0.06 X10*3/uL (0.00-0.03); Imm Gran Pct Auto 0.4 % (0.0-0.4); Lymphocytes Percent Auto 23.8 % (20-40); Mean Corpuscular HGB Conc 34.5 g/dl (31.0-35.0); Mean Corpuscular Hemoglobin 30.5 pg (27.0-33.0); Mean Corpuscular Volume 88.5 fL (80.0-98.0); Mean Platelet Volume 10.4 fL (9.4-12.3); Monocytes Absolute Auto 0.7 X10*3/uL (0.1-1.2); Monocytes Percent Auto 4.4 % (2-11); Neutrophils Absolute Auto 11.8 x10*3/uL (2.0-8.3); Neutrophils Percent Auto 70.5 % (45-73); Platelet Count 241 X10*3/uL (160-400); Red Blood Count 4.59 X10*6/uL (4.20-5.50); Red Cell Distribution Width 12.6 % (11.0-16.0); White Blood Count 16.7 X10*3/uL (4.8-10.8)
[2024-08-28 15:27] LABS: Alanine Aminotransferase 11 U/L (0-31); Albumin Level 4.6 g/dL (3.5-5.0); Alkaline Phosphatase 82 U/L (39-117); Anion Gap 14 (12-20); Aspartate Amino Transferase 18 U/L (5-31); Bilirubin Total 0.2 mg/dL (0.0-1.0); Blood Urea Nitrogen 12 mg/dL (9-16); Calcium 9.6 mg/dL (8.4-10.2); Carbon Dioxide 21 mmol/L (22-29); Chloride 106 mmol/L (96-108); Creatinine Clr Calc Pharmacy 109.4; Estimated Glomerular Filt Rate > 60; Glucose Random 101 mg/dL (60-115); Lipase 17 U/L (8-78); Potassium 3.8 mmol/L (3.3-5.1); Sodium 137 mmol/L (135-145)
[2024-08-28 15:54] VITALS: BP 124/81; PULSE 93; RESP 18; TEMP 36.7; O2SAT 97
[2024-08-28] MEDS: ondansetron HCL 4 MG/2 ML VIAL IVPUSH (15:58)
[2024-08-28] MEDS: Morphine Sulfate 2 MG/ML CARTRIDGE IVPUSH ×2 (15:58→17:25)
[2024-08-28] MEDS: 0.9 % Sodium Chloride 1,000 ML 999 ML IV ×2 (15:59→20:10)
--- NOTE | 2024-08-28 16:12 | PC.NURSE ---
a&ox4. vss and up to date. pt presents to the ED s/p urgent care c/o 9/10 RUQ pain radiating to right flank x 1 week. pt also reports associated n/v/d/fever/chills. tender w/ palpation. tearful during assessment. 20gIV placed in the right AC - medication/IVF administered per provider order. effectiveness pending. on RA w/o difficulty - no sob/wob noted. waiting to have US completed at this time. respirations even/unlabored. plan of care ongoing. call morales placed within reach.
[2024-08-28 16:58] LABS: HCG Quantitative < 2 mIU/mL
[2024-08-28] MEDS: Ketorolac Tromethamine 15 MG/ML VIAL IVPUSH (17:24)
--- NOTE | 2024-08-28 17:27 | PC.NURSE ---
pt tearful upon reassessment. pt seemingly uncomfortable. pt still reporting 9/10 pain s/p medication administration. provider notified/aware. medication readministered per provider order. effectiveness pending. scan results still pending. respirations remain even/unlabored. plan of care ongoing.
[2024-08-28 17:33] LABS: Appearance Urine Clear; Color Urine Yellow; Glucose Urine UA Negative (Negative); Leukocyte Esterase Urine Negative (Negative); Nitrite Urine Negative (Negative); PH 5.5 (5.0-9.0); Specific Gravity - Urine 1.015 (1.005-1.025); Urine Blood Negative (Negative); Urine Ketones 15 mg/dL (Negative); Urine Protein Negative (Neg-Trace)
[2024-08-28 17:36] LABS: Bacteria Urine None Seen (None Seen); Hyaline Casts Urine 0-2 /LPF (0-2); RBC Urine 0-2 /HPF (0-2); Squamous Epithelial Cell Urine 0-2 /HPF (0-2); WBC Urine 0-5 /HPF (0-5)
[2024-08-28 18:04] VITALS: BP 127/83; PULSE 73; RESP 16; TEMP 36.8; O2SAT 97
[2024-08-28] MEDS: Metoclopramide HCl 10 MG/2 ML VIAL IVPUSH (20:10)
[2024-08-28] MEDS: iohexoL 350 MG/ML 100 ML INFUS..BTL IV (20:10)
--- NOTE | 2024-08-28 20:11 | PC.NURSE ---
this rn assumed care of pt, pt a&ox4, respirations even and unlabored. pt brought back from CT at this time. pt medicated per dec.
[2024-08-28 20:12] VITALS: BP 134/76; PULSE 85; RESP 16; TEMP 36.7; O2SAT 100
[2024-08-28 22:10] VITALS: BP 121/62; PULSE 71; RESP 16; TEMP 36.9; O2SAT 98
[2024-08-29 00:28] VITALS: BP 121/62; PULSE 71; RESP 16; TEMP 36.9; O2SAT 98
== END 2024-08-29 00:29 | disposition home or self-care (01) ==
PROVIDERS: Physician Assistant; Emergency Provider Emergency Medicine
DX: R10.11 Right upper quadrant pain (principal); R19.7 Diarrhea, unspecified; R11.2 Nausea with vomiting, unspecified
CPT/HCPCS: 36415; 71046; 74177; 76705; 80053; 81001; 83690; 83735; 84702; 85025; 96361; 96374; 96375; 96376; 99285; J1885; J2270; J2405; J2765; Q9967

== ENCOUNTER 2024-09-05 13:24 | Emergency (ER) | payer OTHER, SELFPAY ==
--- NOTE | ~2024-09-05 | XR_ITS ---
EXAMINATION: XR FOOT, RIGHT CLINICAL INFORMATION: rolled ankle/ foot, swelling COMPARISON: None available. TECHNIQUE: AP, lateral, and oblique views of the right foot. FINDINGS: The bones and soft tissues are normal. No fracture. Alignment is anatomic. Joint spaces are maintained. Developing small bunion of the head of the first metatarsal. XR/XR foot RT min 3V IMPRESSION: 1. No fracture. 2. Developing small bunion of the head of the first metatarsal. Electronically signed by: Elsa Padilla MD 09/05/2024 02:08 PM [facility]
--- NOTE | ~2024-09-05 | XR_ITS ---
Knee EXAMINATION: XR KNEE 4 OR MORE VIEWS RIGHT CLINICAL INFORMATION: fall, heard knee pop COMPARISON: None available at the time of this dictation. TECHNIQUE: Frontal lateral and patella sunrise view 3 views FINDINGS: BONES: No fracture or dislocation is present. JOINTS: Narrowing of joint spaces and developed osteophytes from the edges of articular surfaces suggest degenerative osteoarthritis. There is a small knee joint effusion. SOFT TISSUE: Normal XR/XR knee RT 4V IMPRESSION: Mild tricompartment degenerative osteoarthritis of primarily involving medial compartment. Small knee joint effusion. Electronically signed by: Elsa Padilla MD 09/05/2024 02:04 PM [facility]
--- NOTE | ~2024-09-05 | XR_ITS ---
EXAMINATION:XR ANKLE 3 OR MORE VIEWS RIGHT CLINICAL INFORMATION: rolled ankle +swelling COMPARISON: None TECHNIQUE: Frontal and oblique views FINDINGS: There is no fracture or dislocation. Ankle mortise is preserved. Tibial plafond and talar dome are intact. Medial and lateral malleoli are properly aligned. Subtalar joint is normal. There is no osteolytic or osteoblastic lesions. XR/XR ankle RT min 3V IMPRESSION: No fracture or dislocation. Electronically signed by: Elsa Padilla MD 09/05/2024 02:05 PM [facility]
[2024-09-05 13:38] VITALS: BP 147/90; PULSE 78; RESP 20; TEMP 36.2; O2SAT 100; BMI 38.4
--- NOTE | 2024-09-05 13:38 | ED_ITS ---
HPI - Extremity Injury (Lower) General Chief Complaint: Extremity Injury, Lower Stated Complaint: work inj / fall, knee inj Time Seen by Provider: 09/05/24 14:03 Source: patient Mode of arrival: wheelchair Limitations: no limitations History of Present Illness ED Provider: Natalia Cheung NP HPI Narrative: Patient is a 39-year-old female who presents emergency department for evaluation she reports a mechanical slip and fall prior to arrival outside of her work. She felt 1st a popping sensation to her right ankle and subsequently her right knee. Endorsed pain immediately to the lateral knee and lateral ankle. Has localized swelling. Reports pain exacerbates when attempting to weightbear. Denies any prior injury to this extremity. Denies numbness tingling or cold sensation to the extremity. Related Data Previous Rx's ?Medication ?Instructions ?Recorded albuterol sulfate 90 mcg/actuation 2 inh inhalation Q20M #6.7 grams 09/30/23 aerosol inhaler prednisone 20 mg tablet 20 mg PO DAILY 5 days #5 tabs 09/30/23 meclizine 25 mg tablet 25 mg PO TID PRN dizziness #10 tabs 12/21/23 loperamide 2 mg capsule 2 mg PO Q6H PRN loose stool #20 08/29/24 (Anti-Diarrheal (loperamide)) caps ondansetron 4 mg disintegrating 4 mg PO Q8H PRN nausea and 08/29/24 tablet vomiting #12 tabs Allergies Allergy/AdvReac Type Severity Reaction Status Date / Time Latex, Natural Rubber Allergy Intermediate Hives Verified 09/05/24 13:40 Review of Systems Review of Systems: Yes all other systems are reviewed and are negative PMFSH Past Medical History Attestation statement: The following information was validated with the patient. Source: old records reviewed Social History Social History Alcohol intake: current Alcohol intake frequency: holidays/special occasions only Advance Directives: No Advance Directives Information Provided: Yes Do you have a plan to hurt others: No Plan Physical Exam Vital Signs: Vital Signs: Last Vital Signs Temp 97.1 F 09/05/24 13:38 Pulse 78 09/05/24 13:38 Resp 20 09/05/24 13:38 BP 147/90 H 09/05/24 13:38 Pulse Ox 100 09/05/24 13:38 O2 Del Method Room Air 09/05/24 13:38 BMI result Body Mass Index 38.4 Appearance: Alert.?Oriented to person, place and time. No acute distress.?Normal affect. Eyes: Pupils equal, round and reactive to light.? ENT: Pharynx normal.?? Neck: Normal inspection.? Neck supple.?? CVS: Heart sounds normal. Normal heart rate and rhythm.? Pulses normal.?? Respiratory: No respiratory distress.? Lung sounds clear to auscultation bilaterally?? Abdomen: Soft and non-tender. Normoactive bowel sounds. No pulsatile mass.?? Skin: Skin warm and dry.? Normal skin color.? Normal skin turgor.?? Extremities: Right lower extremity with slight effusion to the right knee, tenderness upon palpation to the superolateral knee without obvious deformity, quadricep muscle and tendon are intact. Difficult to appreciate any laxity on examination due to degree of pain, knee is held in full extension, is able to slightly flex though this does cause pain. Localized swelling to the lateral malleolus without obvious deformity, 2+ DP/PT pulse bilaterally. Neuro: Moves all extremities spontaneously. Sensation intact bilaterally. Course Course Course Narrative: This is a Rapid Medical Examination (RME) performed by Clari Schneider PA-C in triage. Full HPI, ROS, assessment and treatment plan per primary provider in the Main ED. 39 yo female here for eval of right ankle and right knee pain s/p slip and fall at work [employer]. states she was walking up to the entrance and she slipped on the gravel. Reports rolling her right ankle and hearing her right knee pop. admits to immediate pain/ swelling. + tearful. unable to fully exam d/t patient's clothing. ambulating via wheelchair Plan: xrays, tylenol given, further eval needed Medications Administered Discontinued Medications Generic Name Dose Route Start Last Admin Trade Name Freq PRN Reason Stop Dose Admin Acetaminophen 975 mg 09/05/24 13:40 09/05/24 13:43 Acetaminophen 325 Mg Tablet PO 09/05/24 13:41 975 mg ONCE ONE Administration Ketorolac Tromethamine 15 mg 09/05/24 15:07 09/05/24 15:12 Ketorolac Tromethamine 15 Mg/Ml Vial IM 11/30/24 15:08 15 mg ONCE ONE Administration Medical Decision Making Medical Decision Making [facility] Narrative: Patient is a 39-year-old female presenting to emergency department for evaluation of right lower extremity pain in the setting of a mechanical slip and fall as per HPI. On evaluation extremity is neurovascularly intact distally, pain is primarily localized to the right lateral malleolus in the right lateral suprapatellar region without any obvious deformity. XR imaging was obtained to evaluate fracture/dislocation, XR of the right foot ankle and knee reveals no acute osseous abnormality to the ankle or foot, right knee is without evidence of fracture dislocation, there is however a small effusion and evidence of mild osteoarthritis. It is difficult to perform a full examination of the knee as she is quite tender with manipulation. She will be placed in a knee immobilizer, and Shreyas bandage to the right ankle, provided with crutches advised nonweightbearing today and tomorrow followed by weight-bearing as tolerated. Conservative treatment including rest, ice, elevation. Acetaminophen/ibuprofen for pain. Outpatient follow-up with orthopedics/work connection or employer preferred work-related injury facility for persistent pain Differential Diagnosis Differential Diagnoses: The differential diagnosis associated with the presentation includes (Fracture, dislocation, sprain, ligamentous injury, meniscus injury) Admission/Observation Consideration of admission/observation: Escalation of care including admission/observation considered Independent Interpretation I performed an independent interpretation of an: Plain X-Ray (No acute fracture of the right knee ankle or foot) Radiology Impression Discussion of test interpretation with radiology: I have reviewed the radiologist's reading. Radiologist Impression: XR/XR foot RT min 3V IMPRESSION: 1. No fracture. 2. Developing small bunion of the head of the first metatarsal. XR/XR ankle RT min 3V IMPRESSION: No fracture or dislocation. XR/XR knee RT 4V IMPRESSION: Mild tricompartment degenerative osteoarthritis of primarily involving medial compartment. Small knee joint effusion. External Record Review External record reviewed: Outpatient record Tests considered The following testing was considered but not selected: No indication for emergent MRI Prescription Management I considered prescription management with: Pain Medication Discharge Plan Discharge Clinical Impression: Knee sprain Qualifiers: Encounter type: initial encounter Laterality: right Ankle sprain Qualifiers: Encounter type: initial encounter Laterality: right Patient Disposition: Home, Self-Care Instructions: Ankle Sprain (ED), Knee Sprain (ED), Crutch Instructions (ED), How to Use an Elastic Bandage (ED), R.I.C.E. Treatment (ED) Additional Instructions: You can take ibuprofen 200 mg, 3 tablets (600mg) every 6-8 hours as needed for pain, in addition to Tylenol 500 mg, 2 tablets (1,000mg) every 4-6 hours as needed for pain, but not to exceed 3 doses daily (3,000mg).? Speak with your employer regarding work-related injuries and appropriate follow- up to see whether they have any preferred location for workman's comp coverage. If not you may follow-up with primary care doctor/work connection contact information has been provided for you. For persistent pain after 1 week he may follow up with Orthopedics Prescriptions: No Action prednisone 20 mg tablet 20 mg PO DAILY 5 Days Qty: 5 0RF albuterol sulfate 90 mcg/actuation HFA aerosol inhaler 2 inh inhalation Q20M Qty: 6.7 0RF Rx Instructions: for up to 3 doses meclizine 25 mg tablet 25 mg PO TID PRN (Reason: dizziness) Qty: 10 0RF loperamide [Anti-Diarrheal (loperamide)] 2 mg capsule 2 mg PO Q6H PRN (Reason: loose stool) Qty: 20 0RF ondansetron 4 mg tablet,disintegrating 4 mg PO Q8H PRN (Reason: nausea and vomiting) Qty: 12 0RF Referrals: [facility] [place] Orthopedic Surgeons [Provider Group] Work Connection [Provider Group] Physician,None [Primary Care Provider] - Stand Alone Forms: Work/School Release Print Language: Guyanese
[2024-09-05] MEDS: Acetaminophen 325 MG TABLET 975 MG PO (13:43)
[2024-09-05] MEDS: Ketorolac Tromethamine 15 MG/ML VIAL IM (15:12)
--- NOTE | 2024-09-05 15:53 | PC.NURSE ---
this nurse was notified by lens coating technician that pt has fallen in WR aftr DC- pt refuses re-evaluation
[2024-09-05 15:54] VITALS: BP 147/90; PULSE 78; RESP 20; TEMP 36.2; O2SAT 100
== END 2024-09-05 15:54 | disposition home or self-care (01) ==
PROVIDERS: Emergency Provider Emergency Medicine
DX: S83.91XA Sprain of unspecified site of right knee, initial encounter (principal); S93.401A Sprain of unspecified ligament of right ankle, initial encounter; W01.0XXA Fall on same level from slipping, tripping and stumbling without subsequent striking against object, initial encounter; M25.461 Effusion, right knee; Y93.01 Activity, walking, marching and hiking; Y92.511 Restaurant or cafe as the place of occurrence of the external cause; Y99.0 Civilian activity done for income or pay
CPT/HCPCS: 73564; 73610; 73630; 96372; 99283; 99284; J1885

== ENCOUNTER → 2024-09-08 09:51 | Outpatient (BNVA) | payer OTHER, SELFPAY | PROVIDERS: Visit Provider Physician Assistant Medical | DX: M23.8X2 Other internal derangements of left knee (principal); S83.92XD Sprain of unspecified site of left knee, subsequent encounter; S93.491D Sprain of other ligament of right ankle, subsequent encounter; W01.0XXD Fall on same level from slipping, tripping and stumbling without subsequent striking against object, subsequent encounter | CPT/HCPCS: 99202 ==

== ENCOUNTER → 2024-09-15 11:42 | Outpatient (BNVA) | payer OTHER, SELFPAY | PROVIDERS: Visit Provider Physician Assistant Medical | DX: S70.01XD Contusion of right hip, subsequent encounter (principal); S83.91XD Sprain of unspecified site of right knee, subsequent encounter; S93.401D Sprain of unspecified ligament of right ankle, subsequent encounter; W01.0XXD Fall on same level from slipping, tripping and stumbling without subsequent striking against object, subsequent encounter | CPT/HCPCS: 99213 ==

== ENCOUNTER 2024-09-21 09:13 | Outpatient (REF) | payer OTHER, SELFPAY ==
--- NOTE | ~2024-09-21 | XR_ITS ---
EXAMINATION: XR RIGHT ANKLE CLINICAL INFORMATION: Pain in right ankle and joints of right foot M25.571. COMPARISON: XR Right ankle 09/05/2024 TECHNIQUE: AP, lateral, and mortise views of the right ankle. FINDINGS: No fracture. Alignment is anatomic. No erosions. Joint spaces are maintained. Soft tissues are normal. XR/XR ankle RT min 3V IMPRESSION: Normal right ankle. Electronically signed by: Elsa Padilla MD 10/07/2024 09:24 PM MAINE BHAKTA
--- OUTSIDE RECORDS SUMMARY | 2024-09-22 09:19 | XMS_ITS | Continuity of Care Document ---
Author Organization [facility] Address [address] [place] [address] Phone Care Team Providers Care Legal Records Clerk Name Role Phone Unavailable Unavailable Unavailable Medications Medication Instructions Dosage Effective Dates (start - stop) Status Comments Flagyl 500 mg Tab Take 1 tablet by mouth twice a day - Active TRAZODONE HCL (unknown strength) Not Available - Active Procedures Procedure Date Smear, stain & interpret, wet 9 Office/outpatient visit,[facility] 2008 Advance Directives Directive Yes / No [...] Provider Providers Copied on Encounter Office/outpa tient visit,[facility], [address], [place], [id number], tel:[phone] [facility] pelvic pain/achin g/dragging (chief complaint) [...]
== END 2024-09-21 09:14 | disposition home or self-care (01) ==
LOC: HO.HOSX 09:13
DX: M25.562 Pain in left knee (principal); M25.571 Pain in right ankle and joints of right foot; M17.11 Unilateral primary osteoarthritis, right knee; M23.91 Unspecified internal derangement of right knee; S93.421A Sprain of deltoid ligament of right ankle, initial encounter
CPT/HCPCS: 73560; 73562; 73610; 99202

== ENCOUNTER 2024-09-21 09:56 | Outpatient (AMB) | payer OTHER, SELFPAY ==
--- OUTSIDE RECORDS SUMMARY | 2024-09-21 09:59 | XMS_ITS | Continuity of Care Document ---
Author Organization [facility] Address [address] [place] [address] Phone Care Team Providers Care Adoption Manager Name Role Phone Unavailable Unavailable Unavailable Medications Medication Instructions Dosage Effective Dates (start - stop) Status Comments Flagyl 500 mg Tab Take 1 tablet by mouth twice a day - Active TRAZODONE HCL (unknown strength) Not Available - Active Procedures Procedure Date Smear, stain & interpret, wet 9 Office/outpatient visit,[facility] 2008 Advance Directives Directive Yes / No Effective Date File Name Resuscitation Not Answered N/A N/A Life Support Not Answered N/A N/A Intubation Not Answered N/A N/A Antibiotics Not Answered N/A N/A IV Fluid Support Not Answered N/A N/A Tube Feed Not Answered N/A N/A Other Directive N/A N/A WARNING:The information contained in this section is historical and is provided for information only and does not constitute a legal document or any assurance that the information is still accurate. Please verify the information with the morgan of the legal document before using it for clinical purposes. Encounters Encounter Description Practice Location Reason(s) For Visit Diagnoses Date Provider Providers Copied on Encounter Office/outpa tient visit,[facility], [address], [place], [id number], tel:[phone] [facility] pelvic pain/achin g/dragging (chief complaint) discharge w/ odor (chief complaint) VAGINITIS/BACT ERIAL VAGINOSISPELVI C PAIN Sep- 9 No Information Family History Family Member Type Diagnosis Age At Onset Mother Problem (finding) hypertension Problem (finding) Family history of Diabe shravan mellitus Payers Payer name Insurance type Covered constitution party ID Authoriza tion(s) No Information Social History Type Description Quantity Date Captured Comments Alcohol Use Details Unknown Caffeine Use Details Unknown Tobacco Use Status No Information Smoking Status No Information Sex Female Vital Signs Date / Time: Height Weight BMI Pulse Rate Blood Pressure Temperature Respiratory Rate Body Surface Area Head Circumference Head Circ. Percentile Wt./Toni. Percentile BMI percentile Pulse Ox Inhaled Ox 10:42 AM 140.40 lbs 110/78 mm[Hg] Chief Complaint And Reason For Visit From encounter dated '06/07/2009 10:00'. pelvic pain/aching/dragging (chief complaint). Description: Onset 3 Day(s) ago. There was radiationto back. Location is RLQ. The patient describes it as stabbing. It occurs randomly. The problem is worse. Context: menstrual. Symptom is aggravated by movement. Additional information: tylenol and motrin did not help discharge w/ odor (chief complaint). Description: itching and general vaginal irratation. dischargeis dark yellow in color Reason For Referral Reason For Referral No Information History Of Present Illness Encounter Date Complaint History Of Prese nt Illness No Information Functional Status Date Functional Assessmen t No Information Instructions Date Instruction Additional Infor mation No Information Assessments Type Assessment Date No Information Patient Care Teams Name Effective Dates (start - stop) Status Members No Information
--- NOTE | 2024-09-21 10:20 | A.OFFVIS_ITS ---
Vital Signs 09/21/24 10:21 Height 5 ft 2 in Weight 210 lb BMI 38.4 Intake Visit Reasons: WC- ED f/u- RT knee and ankle injury Intake Note: Lissette is a 39 year old female who presents today as a new patient for an emergency department follow up for her work related injuries to her right knee and right ankle s/p slip and fall DOI: 09/05/24. Patient reports feeling a bandar ing sensation in her right ankle and right knee after fall. She expresses she is continuing to have these popping sensations. Expresses pain on lateral aspect of both right ankle and knee and exacerbation of pain with weightbearing. She expresses if she applies pressure on right leg she feels tingling in the right ankle. She is taking ibuprofen 800 mg and says it offers mild relief. Hx of fractured right ankle roughly 7 years ago. Allergies Latex, Natural Rubber Allergy (Intermediate, Verified 09/21/24 10:21) Hives HPI HPI WC- ED f/u- RT knee and ankle injury: Details: Patient is a 39-year-old female who presents for ED follow-up of right knee and ankle injury, date of injury 09/05/2024. On that date, the patient reports that she was to work, and she slipped and fell in the entrance way. Patient states that at that time, she twisted her right ankle, causing her to then twist her right knee and fall onto the right knee and the right hip. Patient states that since that date, she has been experiencing significant discomfort in the right ankle and knee, but has experienced improvement. Patient states that her pain is primarily located on the medial aspect of her right ankle as well as the posterior in the lateral aspect of the right knee. Patient states that she has difficulty ambulating due to this pain, but she is able to ambulate. No other acute complaints or concerns at this time. [facility] Social History (Updated 09/21/24 @ 10:23 by BUSHRA Pritchett) Alcohol intake: current Alcohol intake frequency: holidays/special occasions o nly Substance Use Type: Marijuana Current occupational status: employed Current occupation: [employer] Physical Exam Vital Signs: BMI result Body Mass Index 38.4 Extrem Other: Right knee exam: Patient's R knee mildly edematous on inspection No erythema, ecchymosis, No lacerations, abrasions, open areas No evidence of infection Patient reports tenderness to palpation of the posterolateral aspect of the right knee at the level of the joint, as well as the lateral aspect of the left knee proximal to the joint line Patient reports no tenderness to palpation of the anterior knee, medial or lateral joint lines, patella, quad tendon, patellar tendon Patient is able to extend the knee to 0 degrees without difficulty Patient is able to flex the knee to 100 degrees without difficulty, reports pain beyond this Negative Marlon's Negative anterior drawer No ligamentous laxity with varus/valgus testing Distal sensation intact Capillary refill brisk Right ankle exam: There is slight Edema noted of the posterior aspect of the left foot and ankle No erythema, ecchymosis noted No lacerations, abrasions, open areas No evidence of infection Tenderness to palpation of the medial aspect of the left ankle No tenderness to palpation over the Achilles tendon or lateral left ankle No palpable deformity in the patient's right Achilles tendon Patient was able to dorsiflex and plantar flex the left foot without difficulty No pain with active or passive inversion of the left ankle, however there is discomfort with both active and passive eversion of the left ankle in the medial ankle Negative Khan's test Results Reviewed Results Reviewed: X-rays obtained in the office today and independently reviewed by me, Donald Ugarte PA-C, demonstrate no fracture or acute bony abnormality of the patient's right knee or right ankle. Assessment & Plan Assessment & Plan (1) Posterior right knee pain: Code(s): M25.561 - Pain in right knee Category: Medical (2) Internal derangement of right knee: Code(s): M23.91 - Unspecified internal derangement of right knee Category: Medical (3) Sprain of right medial ankle joint: Code(s): S93.421A - Sprain of deltoid ligament of right ankle, initial encounter Category: Medical Plan 1. Right knee pain with potential internal derangement after a fall Date of injury 09/21/2024 At this time, I feel that an MRI is the best possible course of action to assess the patient's right knee, as her significant tenderness to palpation of both the posterior knee and lateral aspect of the knee raise my suspicion for soft tissue injury MRI of the right knee ordered today Patient will also be referred to physical therapy for range of motion and strengthening of the right knee in the setting of fall and suspected internal derangement Patient was amenable to this plan 2. Right medial ankle sprain Date of injury 09/21/2024 At this time, patient is offered a lace-up ankle brace to be worn with daytime activities Patient was amenable to this idea Patient will wear the lace-up ankle brace with most daytime activities for the next 2 weeks, at which point she should begin to attempt gradually weaning herself off of wearing the lace-up ankle brace for the following 3-4 weeks Patient was educated that if she continues to experience significant discomfort when doing this, she should call our office for reassessment and referral to physical therapy Patient patient was amenable to this plan Patient will follow-up after right knee MRI for results review and discussion of further treatment options if indicated, sooner with any acute concerns Orders: Orders XR knee RT 3V Today M17.11 - Unilateral primary osteoarthritis, right knee XR ankle RT min 3V Today M25.571 - Pain in right ankle and joints of right foot XR knee LT 1V Today M25.562 - Pain in left knee MR knee RT wo con Today M17.11 - Unilateral primary osteoarthritis, right knee Coding Level of Care Code New Pt Level 3 (28908) Diagnoses Posterior right knee pain M25.561 Internal derangement of right knee M23.91 Sprain of right medial ankle joint S93.421A
[2024-09-21 10:21] VITALS: BMI 38.4
== END 2024-09-21 11:11 | disposition home or self-care (01) ==
DX: M25.561 Pain in right knee (principal); M23.91 Unspecified internal derangement of right knee; S93.421A Sprain of deltoid ligament of right ankle, initial encounter
CPT/HCPCS: 99203

== ENCOUNTER 2024-12-18 20:02 | Outpatient (REF) | payer OTHER, SELFPAY ==
--- NOTE | ~2024-12-18 | MR_ITS ---
EXAMINATION: MRI RIGHT KNEE WITHOUT CONTRAST HISTORY: M17.11 - Unilateral primary osteoarthritis, right knee COMPARISON: Correlation is made with plain films of the right knee dated 09/21/2024. TECHNIQUE: Coronal T1 and fat-suppressed proton density, sagittal proton density and fat-suppressed proton density, and axial fat suppressed T2 weighted MR images of the right knee were obtained. FINDINGS: Bone marrow: Bone marrow signal intensity is normal. Joint effusion: There is a small joint effusion. Chamberlain's cyst: There is no Chamberlain's cyst. Articular cartilage: There is mild thinning and irregularity of the patellar cartilage. Muscles/soft tissues: The visualized muscles demonstrate normal signal intensity. There is edema of Hoffa's fat pad. Anterior cruciate ligament: Intact Posterior cruciate ligament: Intact Medial collateral ligament: Intact Lateral collateral ligament: Intact Medial meniscus: Intact Lateral meniscus: Intact Flexor mechanism: The popliteus, gastrocnemius, and hamstring tendons are intact. Quadriceps tendon: Intact Patellar tendon: Intact Patellar retinacula: Intact MR/MR knee RT wo con IMPRESSION: 1. Small joint effusion. Edema of Hoffa's fat pad. 2. Mild thinning and irregularity of the patellar cartilage. Electronically signed by: Sadiq Crump MD 12/21/2024 07:33 AM EDT
--- OUTSIDE RECORDS SUMMARY | 2024-12-18 20:05 | XMS_ITS | Clinical Summary ---
Author Organization [facility] Address [address] [place] [address] Care Team Providers Care [place] Supervisor Name Role Phone Unavailable Primary Care Provider Unavailabl e Social History Tobacco Use Types Packs/Day Years Used Date Smoking Tobacco: Never Assessed Sex and Gender Information Value Date Recorded Sex Assigned at Not on file Gender Identity Not on file Sexual Orientation Not on file Plan of Treatment Health Maintenance Due Date Last Done Comments Hepatitis C Virus Screening 1986 HIV Screening 1999 DTaP/Tdap/Td Vaccines (1 - Tdap) 2005 Hepatitis B Vaccines (1 of 3 - 19+ 3-dose series) 2005 COVID-19 Vaccine (2023-2 5 season) 2024 HPV Vaccines Aged Out No longer eligi ble based on patient's age to complete this topic Pneumococcal Vaccine: Pediat noemy (0-5 Years) and At-Risk Patients (6 to 49 Years) Aged Out No longer eligible b ased on patient's age to complete this topic
--- OUTSIDE RECORDS SUMMARY | 2024-12-18 20:05 | XMS_ITS | Clinical Summary ---
Author Organization [facility] [address] [place] [address] [place] [phone] Phone Care Team Providers Care Tugboat Captain Name Role Phone Rodolfo Malin MD Primary Care Provider Allergies Active Allergy Reactions Criticality Noted Date Comments Latex Rash 04/03/2024 Medications hydrocortisone 1 % topical cream Apply thin layer to affected area twice daily for 2 weeks 04/03/2024 03/29/20 25 Active ibuprofen 200 mg capsule Take by mouth. Active Family History Medical History Relation Name Comments Breast cancer Mother dx'd age 37 Other: thyroid cancer Sister Relation Name Status Comments Mother dx'd age 37 Alive Sister Alive Social History Tobacco Use Types Packs/Day Years Used Date Smoking Tobacco: Never Smokeless Tobacco: Never Alcohol Use Standard Drinks/Week Comments Never 0 (1 standard drink = 0.6 oz pur e alcohol) Housing Instability Answer Date Recorde d Are you worried that in the next 2 months you may not have stable housing? No 10/29/2024 Food Access & Nutrition Answer Date Rec orded Do you have access to a vari ety of food including fruits and vegetables? Yes 10/29/2024 Health Literacy Answer Date Recorded How often do you need to hav e someone help you when you read instructions, pamphlets, or other written material from your doctor or pharmacy? Never 10/29/2024 Caregiver: How often do you need to have someone help you when you read instructions, pamphlets, or other written material from your doctor or pharmacy? Not on file 10/29/2024 Financial Risk Answer Date Recorded How hard is it for you to pa y for the very basics like food, housing, medical care, and air conditioning / heating? Patient declined 10/29/2024 Transportation Answer Date Recorded Has the lack of transportati on kept you from meetings, work, or from getting things needed for daily living? No Has the lack of transportati on kept you from medical appointments or from getting medications? No 10/29/2024 Social Isolation Answer Date Recorded How often do you feel lonely or isolated from th ose around you? Never 10/29/2024 Food Risk Answer Date Recorded Within the past 12 months we worried whether our food would run out before we got money to buy more. Sometimes true 025 Within the past 12 months th e food we bought just didn't last and we didn't have money to get more. Sometimes true 10/29/2024 Dependent Care Answer Date Recorded Do you need help finding or paying for care for your loved ones. For example, children counselor or elderly care for an older adult? No 10/29/2024 Education Answer Date Recorded Do you think completing more education or training, like finishing a GED, going to college, or learning a trade, would be helpful for you? No 10/29/2024 Employment and Income Answer Date Recor ded During the last four weeks, have you been actively looking for work? Patient declined 10/29/2024 Living Situation Answer Date Recorded What is your living situation? 0 10/29/2024 Comments Unknown Sex and Gender Information Value Date Recorded Sex Assigned at Not on file Legal Sex Female 5:20 AM EST Gender Identity Not on file Sexual Orientation Not on file Obstetrics History Last Filed Vital Signs Vital Sign Reading Time Taken Comments Blood Pressure 118/78 04/03/2024 3:37 PM EDT Pulse 96 04/03/2024 3:37 PM EDT Temperature - - Respiratory Rate - - Oxygen Saturation - - Inhaled Oxygen Concentration - - Weight 95.7 kg (211 lb) 04/03/2024 3:37 PM EDT Height - - Body Mass Index - - Plan of Treatment Upcoming Encounters Date Type Department Care Team (Late st Contact Info) Description 03/11/2025 11:30 AM EDT Office Visit Adult Medicine [address] [phone] Pippa Garcia PA [address] [place] [address] Health Maintenance Due Date Last Done Comments DTaP,Tdap,and Td Vaccines (1 - Tdap) 2005 Hepatitis B Vaccines (1 of 3 - 19+ 3-dose series) 2005 Cervical Cancer Screening: P ap Smear 2007 HIV Screening 09/09/2022 Hepatitis C Screening 09/09/2022 COVID-19 Vaccine (1 - 2023-2 5 season) 2024 Influenza Vaccine (#1) 2024 Depression Screening 10/29/2025 10/29/2024 Social Influencers of Health Screening 10/29/2025 10/29/2024 HIB Vaccines Aged Out No longer eligi ble based on patient's age to complete this topic HPV Vaccines Aged Out No longer eligi ble based on patient's age to complete this topic Hepatitis A Vaccines Aged Out No long er eligible based on patient's age to complete this topic IPV Vaccines Aged Out No longer eligi ble based on patient's age to complete this topic MMR Vaccines Aged Out No longer eligi ble based on patient's age to complete this topic Meningococcal ACWY Vaccine Aged Out N o longer eligible based on patient's age to complete this topic Meningococcal B Vacine Aged Out No lo nger eligible based on patient's age to complete this topic Pneumococcal Vaccine: Pediat rics (0 to 5 Years) and At-Risk Patients (6 to 64 Years) Aged Out No longer eligi ble based on patient's age to complete this topic RSV Immunization Patients Un giancarlo 20 months Aged Out No longer eligible b ased on patient's age to complete this topic Varicella Vaccines Aged Out No longer eligible based on patient's age to complete this topic Insurance [facility] [employer] [facility] Care Teams Tugboat Captain Relationship Specialty Start Date End Date Rodolfo Malin MD [address] [place] [address] PCP - General Internal Medicine 11/16/24
--- OUTSIDE RECORDS SUMMARY | 2024-12-18 20:05 | XMS_ITS | Continuity of Care Document ---
Author Organization [facility] Address [address] [place] [address] Phone Care Team Providers Care Model Artists' Name Role Phone Unavailable Unavailable Unavailable Medications Medication Instructions Dosage Effective Dates (start - stop) Status Comments Flagyl 500 mg Tab Take 1 tablet by mouth twice a day - Active TRAZODONE HCL (unknown strength) Not Available - Active Procedures Procedure Date Smear, stain & interpret, wet 9 Office/outpatient visit,[facility] 2008 Advance Directives Directive Yes / No [...] Provider Providers Copied on Encounter Office/outpa tient visit,[facility], [address], [place], [id number], tel:[phone] [facility] pelvic pain/achin g/dragging (chief complaint) discharge w/ odor (chief complaint) VAGINITIS/BACT ERIAL VAGINOSISPELVI C PAIN Sep- 9 No Information Family History Family Member Type Diagnosis Age At Onset Mother Problem (finding) hypertension Problem (finding) Family history of Diabe shravan mellitus Payers Payer name Insurance type Covered democrat ID Authoriza tion(s) No Information Social History [...]
== END 2024-12-18 20:03 | disposition home or self-care (01) ==
LOC: HO.MRI 20:02
DX: M17.11 Unilateral primary osteoarthritis, right knee (principal)
CPT/HCPCS: 73721

== ENCOUNTER → 2024-12-18 20:02 | Outpatient (BNV) | payer OTHER, SELFPAY | PROVIDERS: Visit Provider Radiology Diagnostic Radiology | DX: M25.461 Effusion, right knee (principal); M79.4 Hypertrophy of (infrapatellar) fat pad | CPT/HCPCS: 73721 ==

== ENCOUNTER 2025-01-15 13:06 | Outpatient (AMB) | payer OTHER, SELFPAY ==
--- NOTE | 2025-01-15 13:06 | MHC.OFFVIS ---
Intake Visit Reasons: TH-RT Knee MRI Review Intake Note: Lissette is a 39 year old female who presents today for a telehealth visit via telephone for an MRI review of her right knee done on 12/18/24. Allergies Latex, Natural Rubber Allergy (Intermediate, Verified 01/15/25 13:08) Hives HPI HPI TH-RT Knee MRI Review: Details: Lissette is a 39 year old female who presents today for a telehealth visit via telephone for an MRI review of her right knee done on 12/18/24. Patient reports that she is not experiencing pain every day anymore, but more like every 2-3 days. [facility] Social History (Updated 09/21/24 @ 10:23 by BUSHRA Pritchett) Alcohol intake: current Alcohol intake frequency: holidays/special occasions only Substance Use Type: Marijuana Current occupational status: employed Current occupation: [employer] Telehealth Telehealth Telehealth Platform: Telephone Location of provider rendering services: practice address Location of patient: address on file Patient Identification confirmed using: Name, : Yes Telehealth method: voice only Patient verbally consented to treatment: Yes Patient verbally consented to billing insurance company: Yes Patient informed of any privacy concerns related to visit: Yes Results Reviewed Results Reviewed: MR/MR knee RT wo con IMPRESSION: 1. Small joint effusion. Edema of Hoffa's fat pad. 2. Mild thinning and irregularity of the patellar cartilage. Electronically signed by: Sadiq Crump MD 12/21/2024 07:33 AM EDT Assessment & Plan Assessment & Plan (1) Posterior right knee pain: Code(s): M25.561 - Pain in right knee Category: Medical Plan 1. Right knee pain with potential internal derangement after a fall Date of injury 09/21/2024 Patient was educated about the MRI findings Patient is educated that there is no acute intervention indicated at this time Patient will be referred to physical therapy for range of motion and strengthening of the right knee Patient was amenable to this plan If PT is ineffective, patient may follow-up for alternative treatment options, including but not limited to injections Orders: Orders PT Evaluation and Treatment Today M25.561 - Pain in right knee Coding Level of Care Code Tele Est Pt Level 3 (63818) Diagnoses Posterior right knee pain M25.561
--- OUTSIDE RECORDS SUMMARY | 2025-01-15 13:34 | XMS_ITS | Continuity of Care Document ---
Author Organization [facility] Address [address] [place] [address] Phone Care Team Providers Care Fabric Lay Out Worker Name Role Phone Unavailable Unavailable Unavailable Medications Medication Instructions Dosage Effective Dates (start - stop) Status Comments Flagyl 500 mg Tab Take 1 tablet by mouth twice a day - Active TRAZODONE HCL (unknown strength) Not Available - Active Procedures Procedure Date Smear, stain & interpret, wet 9 Office/outpatient visit,[facility] 2008 Advance Directives Directive Yes / No [...] Provider Providers Copied on Encounter Office/outpa tient visit,[facility], [address], [place], [id number], tel:[phone] [facility] pelvic pain/achin g/dragging (chief complaint) discharge w/ odor (chief complaint) VAGINITIS/BACT ERIAL VAGINOSISPELVI C PAIN Sep- 9 No Information Family History Family Member Type Diagnosis Age At Onset Mother Problem (finding) hypertension Problem (finding) Family history of Diabe shravan mellitus Payers Payer name Insurance type Covered republican ID Authoriza tion(s) No Information Social History [...]
--- OUTSIDE RECORDS SUMMARY | 2025-01-15 13:34 | XMS_ITS | Clinical Summary ---
Author Organization [facility] Address [address] [place] [address] Care Team Providers Care Recruitment Advertising Manager Name Role Phone Unavailable Primary Care Provider [...]
--- OUTSIDE RECORDS SUMMARY | 2025-01-15 13:34 | XMS_ITS | Clinical Summary ---
Author Organization [facility] [address] [place] [address] [place] [phone] Phone Care Team Providers Care Plater Printed Circuit Board Panels Name Role Phone Rodolfo Malin MD Primary [...] care for your loved ones. For example, child care centre director or elderly care for an older adult? [...] 11:30 AM EDT Office Visit Adult Medicine [address] [phone] Pippa Garcia PA [address] [place] [address] Health Maintenance Due Date Last Done Comments DTaP,Tdap,and Td Vaccines (1 - Tdap) 2005 Hepatitis B Vaccines (1 of 3 - 19+ 3-dose series) 2005 Cervical Cancer Screening: P ap Smear 2007 HIV Screening 09/09/2022 Hepatitis C Screening 09/09/2022 COVID-19 Vaccine (1 - 2023-2 5 season) 2024 Influenza Vaccine (Season Ended) 2025 Depression Screening 10/29/2025 10/29/2024 Social Influencers of [...] age to complete this topic Meningococcal B Vaccine Aged Out No l onger eligible based on patient's age to complete [...] patient's age to complete this topic Insurance [facility] [employer] Care Teams Plater Printed Circuit Board Panels Relationship Specialty Start Date End Date Rodolfo Malin MD [address] [place] [address] PCP - General Internal Medicine 11/16/24
== END 2025-01-15 13:29 | disposition home or self-care (01) ==
LOC: HO.HOS 13:06
DX: M25.561 Pain in right knee (principal)
CPT/HCPCS: 98012